=== PATIENT | male | born 1960 | race Caucasian/White ===

== ENCOUNTER → 2017-05-27 14:26 | Outpatient (CLI) | payer MEDICAID, SELFPAY ==
--- NOTE | 2017-05-27 14:51 | CT_ITS ---
STUDY: CT CHEST WITH CONTRAST REASON FOR EXAM: Male, 56 years old. Lung cancer follow up, chemotherapy. Prior surgery for Port. RADIATION DOSAGE (If Supplied By Facility): CTDIvol = ( 14.42 ) mGy, DLP = ( 627.93 ) mGycm TECHNIQUE: Transaxial imaging was performed following intravenous administration of 100mL ml of Isovue 300 contrast material. Individualized dose optimization techniques were used for this CT. COMPARISON: CT Chest Nov 30 2016 1:03pm FINDINGS: There is a left hilar mass measuring 33 x 16 mm. There is no demonstrated pleural abnormality. There is a right Port-A-Cath and/or mediport in place. The tip is in the superior vena cava. Normal heart and pericardium. Normal mediastinum. Normal hilar regions. Normal enhanced pulmonary arteries. Normal aorta arch and descending thoracic aorta. There are multi-level degenerative changes of the thoracic spine. 12 mm left adrenal mass. This is [address]/Chest WITH Contrast IMPRESSION: There is slight decrease in size of left hilar mass. There are no new lesions. Stable left adrenal adenoma. Electronically Signed: Chalino Fernandez MD at 16:16 EST , Service support ,
[2017-05-27 15:18] LABS: Absolute Lymphocyte Count 0.82 X10^3/ul (0.83-4.51); Absolute Neutrophil Count 5.5 X10^3/uL (2.0-7.7); Basophil# 0.01 X10^3/uL; Basophil% 0.1 % (0-1); Eosinophil# 0.19 X10^3/uL; Eosinophils% 2.6 % (0-5); Hemoglobin 14.3 g/dl (13.0-16.5); Lymphocyte # 0.82 X10^3/ul (4.0); Lymphocyte % 11.2 % (19-41); Mean Corpuscular Hgb 30.9 pg (27.0-32.0); Mean Corpuscular Volume 90.7 fL (80-94); Mean Platelet Vol. 8.8 fl (6.2-12.0); Monocyte# 0.78 X10^3/uL; Monocyte% 10.6 % (0-10); Neutrophil # 5.52 X10^3/uL (2.7-7.7); Neutrophil % 75.2 % (47-70); Platelet Count 230 K/mm3 (150-450); RBC Distribution Width CV 14.1 % (11.6-14.6); RBC Distribution Width SD 46.5 fl (35.1-43.9); Red Blood Count 4.63 M/mm3 (4.6-6.2); White Blood Count 7.3 K/mm3 (4.4-11.0)
[2017-05-27 15:22] LABS: POSITIVE COUNT NO; POSITIVE DIFFERENTIAL NO; POSITIVE MORPHOLOGY NO
[2017-05-27 15:33] LABS: ALB/GLOB Ratio 1.1 RATIO (0.9-2.4); AST(SGOT) 16 U/L (15-37); Alanine Aminotransfer ALT/SGPT 25 U/L (16-61); Albumin, Serum 3.6 g/dL (3.2-5.0); Alkaline Phosphatase 88 U/L (45-117); Anion Gap 5 (5-15); BUN 18 mg/dL (7-18); BUN/Creat Ratio 17.5 RATIO (10-20); Calcium,Total 8.6 mg/dL (8.5-10.1); Chloride 105 mmol/L (98-107); Creatinine, Serum 1.03 mg/dL (0.70-1.30); EST Glomerular Filtration Rate 80 mL/min (>60); Est Glom Filt Rate - Afr Amer 97 mL/min (>60); Globulin 3.3 g/dL (2.2-4.2); Glucose 81 mg/dL (74-106); Potassium 3.9 mmol/L (3.5-5.1); Protein, Total 6.9 g/dL (6.4-8.2); Sodium Level 140 mmol/L (136-145)
== END ==
PROVIDERS: Visit Provider Internal Medicine Medical Oncology
DX: C34.92 Malignant neoplasm of unspecified part of left bronchus or lung (principal); D35.02 Benign neoplasm of left adrenal gland
CPT/HCPCS: 36415; 71260; 80053; 85025; Q9967

== ENCOUNTER → 2017-06-01 13:17 | Outpatient (CLI) | payer MEDICAID, SELFPAY ==
[2016-09-16 22:15] VITALS: BP 132/81
[2017-04-04 15:03] VITALS: BP 98/60; BMI 24.7
[2017-06-01 15:35] LABS: Amphetamine Urine VISTA NEGATIVE (<1000 ng/mL); Barbiturate Urine VISTA NEGATIVE (< 200 ng/mL); Benzodiazepine Urine VISTA NEGATIVE (< 200 ng/mL); Cocaine Urine VISTA NEGATIVE (< 300 ng/mL); Ecstacy Urine VISTA POSITIVE (< 500 ng/mL); Methadone Urine VISTA NEGATIVE (< 300 ng/mL); PCP Urine VISTA NEGATIVE (< 25 ng/mL); THC Urine VISTA NEGATIVE (< 50 ng/mL); Vista UDS pH Range 6
== END ==
PROVIDERS: Visit Provider Anesthesiology Pain Medicine
DX: F11.20 Opioid dependence, uncomplicated (principal)
CPT/HCPCS: 80307

== ENCOUNTER → 2017-08-03 14:54 | Outpatient (CLI) | payer MEDICAID, SELFPAY ==
--- NOTE | 2017-08-03 14:56 | CT_ITS ---
STUDY: CT CHEST WITH CONTRAST REASON FOR EXAM: Male, 56 years old. Lung cancer follow-up. Radiation chemotherapy. RADIATION DOSAGE (If Supplied By Facility): CTDIvol = ( 13.42 ) mGy, DLP = ( 564.94 ) mGycm TECHNIQUE: Transaxial imaging was performed following intravenous administration of 100mL ml of Isovue 300 contrast material. Individualized dose optimization techniques were used for this CT. COMPARISON: 07/21/2016, 08/19/2016, 11/30/2016, 05/27/2017. FINDINGS: The wedge-shaped area of abnormal soft tissue density extending anterior from the left hilum is similar in shape and size to the next most recent examination. Greatest dimension on the sagittal images is 5.9 cm length and 2.9 cm greatest width. Abnormal soft tissue thickening surrounding the bronchi to the right upper lobe is grossly stable. Mild volume loss of the right lung is stable. Elevation of the left hemidiaphragm is stable. Left lung is hyperexpanded and adequately clear. No effusions. Normal heart and pericardium. Normal mediastinum. Normal enhanced pulmonary arteries. Normal aorta arch and descending thoracic aorta. Normal osseous structures. There is no demonstrated abnormality of the visualized upper abdomen. CT/Chest WITH Contrast IMPRESSION: No significant change. Stable appearance of a wedge-shaped area of soft tissue density extending anterior and downward from the left hilum. This could represent neoplasm or post therapy fibrosis. This could be differentiated with PET scan. No other changes. Electronically Signed: Loy Allen MD at 22:47 EDT , Service support ,
[2017-08-03 15:16] LABS: EGFR FINGERSTICK > 60.0000 mL/min (>60)
== END ==
PROVIDERS: Visit Provider Internal Medicine Medical Oncology
DX: C34.2 Malignant neoplasm of middle lobe, bronchus or lung (principal)
CPT/HCPCS: 71260; Q9967

== ENCOUNTER → 2017-11-01 15:52 | Outpatient (CLI) | payer MEDICAID, SELFPAY ==
--- NOTE | 2017-11-01 15:54 | CT_ITS ---
STUDY: CT CHEST WITHOUT CONTRAST REASON FOR EXAM: Male, 57 years old. Lung cancer RADIATION DOSAGE (If Supplied By Facility): CTDIvol = ( 11.61 ) mGy, DLP = ( 538.06 ) mGycm TECHNIQUE: Transaxial imaging was performed without the administration of intravenous contrast material. Individualized dose optimization techniques were used for this CT. COMPARISON: 08/03/2017 FINDINGS: Right chest wall port. Stable spiculated density in the left hilum and left upper lobe, measuring approximately 3.0 x 2.1 cm on image 67 of series 4. Stable associated lingular atelectasis more distally. There is no demonstrated pleural abnormality. Normal heart and pericardium. Normal mediastinum. Normal hilar regions. Normal unenhanced pulmonary arteries. Normal aorta arch and descending thoracic aorta. Normal osseous structures. Stable 16 mm left adrenal adenoma. CT/Chest WITH Contrast IMPRESSION: Stable spiculated density in the left hilum and left upper lobe as described. Stable associated lingular atelectasis more distally. No new suspicious pulmonary or mediastinal lesions are seen. Electronically Signed: Jeffery Tavera MD at 23:10 EDT Tel , Service support ,
[2017-11-01 16:05] LABS: EGFR FINGERSTICK > 60.0000 mL/min (>60)
== END ==
PROVIDERS: Visit Provider Internal Medicine Medical Oncology
DX: C34.2 Malignant neoplasm of middle lobe, bronchus or lung (principal)
CPT/HCPCS: 71260; Q9967

== ENCOUNTER → 2018-10-05 15:48 | Outpatient (CLI) | payer MEDICAID, SELFPAY ==
--- NOTE | 2018-10-05 15:50 | CT_ITS ---
STUDY: CT ABDOMEN WITH CONTRAST REASON FOR EXAM: Male, 57 years old. Lung cancer RADIATION DOSAGE (If Supplied By Facility): CTDIvol = ( 20.9 ) mGy, DLP = ( 1327.18 ) mGycm TECHNIQUE: Transaxial images were obtained post I.V. administration of 100 IV Isovue 300, and with oral contrast. Sagittal and coronal images were reconstructed. Individualized dose optimization techniques were used for this CT. COMPARISON: None. FINDINGS: The visualized lung bases are unremarkable. The visualized portions of the heart are within normal limits. Normal liver. Normal gallbladder and extrahepatic biliary system. Normal spleen. Normal pancreas. Normal right adrenal gland. 1 cm adenoma the left adrenal gland. Normal right kidney. Normal left kidney. Normal visualized stomach. Normal small intestine. Normal colon. The appendix is visualized and appears normal. Normal abdominal aorta. Normal inferior vena cava. Normal retroperitoneum. Normal abdominal wall. Normal osseous structures. CT/Abdomen WITH IV Contrast IMPRESSION: Normal enhanced CT of the abdomen. No CT evidence of metastatic bronchogenic carcinoma. Electronically Signed: Julián Warren MD at 9:58 EDT Tel , Service support ,
--- NOTE | 2018-10-05 15:50 | CT_ITS ---
STUDY: CT CHEST WITH CONTRAST REASON FOR EXAM: Male, 57 years old. Follow-up lung cancer RADIATION DOSAGE (If Supplied By Facility): CTDIvol = ( 20.9 ) mGy, DLP = ( 1327.18 ) mGycm TECHNIQUE: Transaxial imaging was performed following intravenous administration of 100 IV Isovue 300. Individualized dose optimization techniques were used for this CT. COMPARISON: 11/01/2017 FINDINGS: Right internal jugular chest port. No change in 2 x 3 cm left hilar mass or lymphadenopathy consistent with treated bronchogenic carcinoma. Also no change in the surrounding pulmonary parenchymal scarring likely from radiation therapy. There is no demonstrated pleural abnormality. Normal heart and pericardium. Normal mediastinum. Normal hilar regions. Normal enhanced pulmonary arteries. Normal aorta arch and descending thoracic aorta. Normal osseous structures. There is no demonstrated abnormality of the visualized upper abdomen. CT/Chest WITH Contrast IMPRESSION: No change in treated left hilar bronchogenic carcinoma. Electronically Signed: Julián Warren MD at 9:56 EDT Tel , Service support ,
[2018-10-05 16:26] LABS: CREATININE FINGERSTICK 1.3 mg/dL (0.70-1.30)
== END ==
PROVIDERS: Referring Provider Internal Medicine Medical Oncology; Visit Provider Internal Medicine Medical Oncology
DX: C34.2 Malignant neoplasm of middle lobe, bronchus or lung (principal)
CPT/HCPCS: 71260; 74160; Q9967

== ENCOUNTER → 2018-11-09 15:27 | Outpatient (CLI) | payer MEDICAID, SELFPAY ==
[2018-10-10 15:13] VITALS: BMI 34.5
--- NOTE | 2018-11-09 15:30 | MRI_ITS ---
HISTORY: Headache, history of lung cancer COMPARISON: MRI brain 02/28/2017 and 04/07/2016 TECHNIQUE: Multiphasic multiplanar MR imaging of the brain per department protocol without and with 20 ml of Dotarem intravenous gadolinium. # of images including paperwork: [phone] FINDINGS: BRAIN: Diffusion-weighted imaging shows no acute infarct. No remote parenchymal infarct. No parenchymal hemorrhage, intra-axial mass, mass effect, or midline shift. No abnormal extra-axial fluid collections. VENTRICLES: Ventricles are normal in size and configuration. No hydrocephalus. POST CONTRAST: No abnormal enhancing parenchymal or dural based lesions. OTHER: Paranasal sinuses are clear. Mastoid air cells are clear. Orbits are unremarkable. MRI/Brain W/WO Contrast IMPRESSION: 1. Negative pre-and postcontrast MR examination of the brain. 2. No evidence for malignancy. 3. No significant interval change. at 1733 Reported and signed by: Romero Kincaid MD Electronically Signed: Romero Kincaid MD at 17:32 EDT Tel , Service support ,
[2018-11-09 17:16] LABS: Hemoglobin 14.6 g/dL (13.0-16.5); Mean Corp Hgb Conc 33.2 g/dL (32-36); Mean Corpuscular Hgb 30.7 pg (27.0-32.0); Mean Corpuscular Volume 92.4 fL (80-94); Mean Platelet Vol. 8.5 fl (6.2-12.0); Platelet Count 320 K/mm3 (150-450); RBC Distribution Width CV 13.5 % (11.6-14.6); RBC Distribution Width SD 46.2 fl (35.1-43.9); Red Blood Count 4.76 M/mm3 (4.6-6.2); White Blood Count 6.2 K/mm3 (4.4-11.0)
[2018-11-09 17:40] LABS: Valproic Acid (Depakene) Level 31 ug/mL (50-100)
[2018-11-09 17:43] LABS: Vitamin B12 392 pg/mL (211-911)
[2018-11-09 18:18] LABS: ALB/GLOB Ratio 0.9 RATIO (0.9-2.4); AST(SGOT) 13 U/L (15-37); Alanine Aminotransfer ALT/SGPT 36 U/L (16-61); Albumin, Serum 3.4 g/dL (3.2-5.0); Alkaline Phosphatase 135 U/L (45-117); Anion Gap 7 (5-15); BUN 14 mg/dL (7-18); Calcium,Total 8.3 mg/dL (8.5-10.1); Chloride 106 mmol/L (98-107); Creatinine, Serum 1.08 mg/dL (0.70-1.30); EST Glomerular Filtration Rate 75 mL/min (>60); Est Glom Filt Rate - Afr Amer 91 mL/min (>60); Globulin 3.6 g/dL (2.2-4.2); Glucose 88 mg/dL (74-106); Potassium 4.1 mmol/L (3.5-5.1); Sodium Level 140 mmol/L (136-145); Thyroid Stim Hormone (TSH) 1.24 uIU/mL (0.358-3.74)
== END ==
PROVIDERS: Referring Provider Psychiatry & Neurology Neurology; Visit Provider Psychiatry & Neurology Neurology
DX: R51 Headache (principal); M79.7 Fibromyalgia
CPT/HCPCS: 36415; 70553; 80053; 80164; 82140; 82607; 82746; 84443; 85027; A9575

== ENCOUNTER 2018-12-22 18:07 | Emergency (ER) | payer MEDICAID, SELFPAY ==
[2018-10-10 15:13] VITALS: BMI 34.5
[2018-12-22 18:08] VITALS: BP 141/80; PULSE 119; RESP 16; TEMP 36.6; O2SAT 95; BMI 30.5
[2018-12-22 18:27] VITALS: BP 123/81; PULSE 118; RESP 16; TEMP 37; O2SAT 94
[2018-12-22 18:32] VITALS: O2SAT 94
--- NOTE | 2018-12-22 18:39 | EKG12_ITS ---
Test Reason : DYSRHYTHMIA Blood Pressure : / mmHG Vent. Rate : 109 BPM Atrial Rate : 109 BPM P-R Int : 166 ms QRS Dur : 118 ms QT Int : 336 ms P-R-T Axes : 043 -55 057 degrees QTc Int : 452 ms Sinus tachycardia Right bundle branch block Left anterior fascicular block Abnormal ECG Confirmed by AFSHIN COX, ULYSSES ([id number]), publication editor MUNIRA WOLF ([id number]) on 12/26/2018 11:19:32 AM Referred By: BB Confirmed By:LUYSSES PEPE MD
--- NOTE | 2018-12-22 18:40 | ED.DCSUM_ITS ---
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 He denies any dyspnea. He states last time he felt like this it was pneumonia. Denies any leg pain or swelling. No history of DVT or PE. No recent travel, hospitalization, surgery, or other immobilization. Subjective fevers and sweats at home. He states he does not have a thermometer. No history of COPD but he did have lung cancer that was treated nonsurgically with chemotherapy successfully, it is not active. - Past Medical History (1) Fibromyalgia Status: Chronic (2) Chronic pain Status: Chronic (3) Anxiety and depression Status: Chronic (4) GERD (gastroesophageal reflux disease) Status: Chronic (5) ICH (intracerebral hemorrhage) Status: Resolved (6) Non-small cell carcinoma of left lung Status: Resolved (7) Tremor Status: Chronic (8) COPD (chronic obstructive pulmonary disease) Status: Suspected Past Medical History - Allergies and Home Meds Allergies/Adverse Reactions: Allergies No Known Allergies Allergy (Verified 10/10/18 15:12) Primary Care Physician: Care Physician,No Primary [Primary Care Provider] - Surgical History: - - L ankle hardward/surgery. Lives: Alone Smoking Status: Current every day smoker - Family History Maternal Family History: Family History (Last Reviewed 10/10/18 @ 15:11 by Zarina Prakash) Father Prostate cancer Skin cancer Mother Breast cancer Lung cancer Family History: Reports: Cancer - Mother w/ metastatic Breast/?Lung CA. Paternal Family History: Family History (Last Reviewed 10/10/18 @ 15:11 by Zarina Prakash) Father Prostate cancer Skin cancer Mother Breast cancer Lung cancer Family History: Reports: Cancer - Father w/ Prostate CA. Review of Systems General: Reports: Fever, Malaise, Sweats. Denies: Chills Eyes: Denies: Visual changes - bilaterally, Diplopia ENT: Denies: Bilateral ear pain, Rhinorrhea, Sore throat Cardiovascular: Reports: Chest pain. Denies: Palpitations Respiratory: Reports: Cough. Denies: Dyspnea, Sputum, Dyspnea on exertion, Orthopnea Gastrointestinal: Denies: Abdominal pain, Nausea, Vomiting, Diarrhea, Melena, Hematochezia Genitourinary: Denies: Dysuria, Hematuria, Frequency Musculoskeletal: Reports: Extremity Pain - chronically intermittent. Denies: Back pain, Swelling Skin: Denies: Rash, Wounds Neurological: Denies: Headache, Weakness, Numbness Physical Exam Vital Signs/Narrative: Vital Signs Temp Pulse Resp BP Pulse Ox 12/22/18 18:27 98.6 F 118 H 16 123/81 H 94 12/22/18 18:08 97.8 F 119 H 16 141/80 H 95 Inital Vital Signs reviewed: Yes General: Well nourished, Well developed, No Acute Distress - conversing in full sentences Head: Normocephalic, Atraumatic Eyes: Perrl, EOMI ENT: Moist mucous membranes, No rhinorrhea, TM's clear - except for bulging of R TM, no erythema or perf. Negative for: Nasal congestion, Sinus tenderness Neck: Supple, Nontender, No lymphadenopathy, No JVD Cardiovascular: Regular rate, Regular rhythm, No murmurs, Normal S1, Normal S2, Tachycardia Respiratory: No distress, CTA bilaterally, Chest nontender Abdomen: Soft, Nontender, Nondistended, Normal bowel sounds Back: Nontender, Normal Inspection. Negative for: CVA tenderness Extremities: Nontender, No edema. Negative for: Calf Tenderness Skin: Normal color, No rash, No Trauma Neurological: Alert, Oriented x3, Cranial nerves II-XII grossly intact, Normal Strength, Normal Sensation, Normal Gait Psychological: Normal affect, Normal Mood Diagnostic/Tx/Re-eval Impressions Chest X-Ray 12/22/18 19:10 IMPRESSION: No acute thoracic pathology. Electronically Signed: Matthew Carmichael, at 19:26 EDT Tel , Service support , 12/22/18 19:10 Chest PA and Lateral [RAD] Stat Laboratory Results 12/22/18 12/22/18 12/22/18 19:00 19:00 19:00 WBC 8.6 RBC 5.04 Hgb 15.4 Hct 46.0 MCV 91.3 MCH 30.6 MCHC 33.5 RDW Std Deviation 44.3 H RDW Coeff of Hugh 13.3 Plt Count 294 MPV 8.6 Immature Gran % (Auto) 0.500 Neut % (Auto) 73.1 H Lymph % (Auto) 10.[address] [facility] % (Auto) 13.8 H Eos % (Auto) 2.0 Baso % (Auto) 0.4 Absolute Neuts (auto) 6.3 Absolute Lymphs (auto) 0.87 Nucleated RBC % 0 D-Dimer Quant (PE/DVT) 0.30 Sodium 140 Potassium 3.6 Chloride 106 Carbon Dioxide 28.0 Anion Gap 6 BUN 21 H Creatinine 1.07 Estim Creat Clear Calc 84.61 Est GFR (MDRD) Af Amer 92 Est GFR (MDRD) Non-Af 76 BUN/Creatinine Ratio 19.6 Glucose 116 H Calcium 9.5 Troponin I < 0.015 - Rhythm Strip Rhythm Strip: Sinus Tach Rate: 110 Ectopy: None - EKG Initial EKG Interpretation: Sinus Rhythm, No Acute Injury Pattern - computer calling acute CA/STEMI, however I disagree; no acute injury, RBBB, LAFB Prior: Changed - Left axis is old, right bundle branch block is new compared to old EKG 2016 - Medical Decision Making Patient has a resting tachycardia with pleuritic chest discomfort, but he meets Wells criteria in order to perform dimer testing which was well within normal limits, ruling out acute PE as cause for this. Of note, his chest was nontender. His chest x-ray shows no acute infiltrates, and his work-up was otherwise unremarkable with an EKG that shows a new right bundle branch block but it is compared with an EKG from about 3 years ago. His cardiac enzymes are negative. He has had no dyspnea. I think it would be reasonable to cover him empirically with antibiotics to cover atypicals given his resting tachycardia, he declined albuterol since he has no dyspnea, and I think he is stable for discharge home. He is comfortable with this plan and encouraged to return for worsening symptoms. ED Disposition - Plan for ED Patient: Disposition: Home or Assisted Living Diagnosis: Pleuritic chest pain, Lower respiratory infection Instructions: BRONCHITIS, Antiobiotic Treatment (Adult) Prescriptions: Azithromycin 250 mg PO QHS #6 tab Prescription Printed Referrals: Doctor,Your [STAFF PHYSICIAN] - 3-5 Days if not improving (or return to ER if getting worse)
[2018-12-22] MEDS: Ketorolac 15 MG/ML Vial IV (19:06)
[2018-12-22 19:10] LABS: Absolute Lymphocyte Count 0.87 X10^3/uL (0.83-4.51); Absolute Neutrophil Count 6.3 X10^3/uL (2.0-7.7); Basophil# 0.03 X10^3/uL; Basophil% 0.4 % (0-1); Eosinophil# 0.17 X10^3/uL; Hemoglobin 15.4 g/dL (13.0-16.5); Lymphocyte # 0.87 X10^3/ul (4.0); Lymphocyte % 10.2 % (19-41); Mean Corp Hgb Conc 33.5 g/dL (32-36); Mean Corpuscular Hgb 30.6 pg (27.0-32.0); Mean Corpuscular Volume 91.3 fL (80-94); Mean Platelet Vol. 8.6 fl (6.2-12.0); Monocyte# 1.18 X10^3/uL; Monocyte% 13.8 % (0-10); NRBC Flagged by Analyzer 0 % (0-5); Neutrophil # 6.27 X10^3/uL (2.7-7.7); Neutrophil % 73.1 % (47-70); Platelet Count 294 K/mm3 (150-450); RBC Distribution Width CV 13.3 % (11.6-14.6); RBC Distribution Width SD 44.3 fl (35.1-43.9); Red Blood Count 5.04 M/mm3 (4.6-6.2); White Blood Count 8.6 K/mm3 (4.4-11.0)
--- NOTE | 2018-12-22 19:10 | RAD_ITS ---
STUDY: X-RAY CHEST REASON FOR EXAM: Male, 58 years old. Cough TECHNIQUE: PA and lateral views of the chest COMPARISON: X-Ray Chest February 29, 2016 FINDINGS: Right chest tunneled catheter is present with the tip at the cavoatrial injection. The lungs are clear. Left lung base scarring is present. There are no pleural effusions. There is no pneumothorax. The heart is normal in size. The visualized osseous structures are within normal limits. RAD/Chest PA and Lateral IMPRESSION: No acute thoracic pathology. Electronically Signed: Matthew Carmichael, at 19:26 EDT Tel , Service support ,
[2018-12-22 19:27] LABS: Anion Gap 6 (5-15); BUN 21 mg/dL (7-18); BUN/Creat Ratio 19.6 RATIO (10-20); Calcium,Total 9.5 mg/dL (8.5-10.1); Chloride 106 mmol/L (98-107); Creatinine, Serum 1.07 mg/dL (0.70-1.30); EST Glomerular Filtration Rate 76 mL/min (>60); Est Glom Filt Rate - Afr Amer 92 mL/min (>60); Estimated Creatinine Clearance 84.61 ml/min; Glucose 116 mg/dL (74-106); Potassium 3.6 mmol/L (3.5-5.1); Sodium Level 140 mmol/L (136-145)
[2018-12-22 20:05] VITALS: BP 121/77; PULSE 101; RESP 18; TEMP 37; O2SAT 5; O2SAT 95
--- NOTE | 2018-12-22 20:08 | ED.RN ---
RN GAVE PT PHYSICIAN DIRECTOR PAMPHLET PER DR. DUMONT FOR PATIENT TO FOLLOW UP.
== END 2018-12-22 20:07 | disposition home or self-care (01) ==
PROVIDERS: Emergency Provider Emergency Medicine
DX: J22 Unspecified acute lower respiratory infection (principal); R09.1 Pleurisy; I45.10 Unspecified right bundle-branch block; M79.7 Fibromyalgia; G89.29 Other chronic pain; K21.9 Gastro-esophageal reflux disease without esophagitis; R25.1 Tremor, unspecified; Z85.118 Personal history of other malignant neoplasm of bronchus and lung; Z87.01 Personal history of pneumonia (recurrent); Z79.899 Other long term (current) drug therapy; F17.200 Nicotine dependence, unspecified, uncomplicated
CPT/HCPCS: 71046; 80048; 84484; 85025; 85379; 93005; 96374; 99284; A4216

== ENCOUNTER → 2019-06-11 15:43 | Outpatient (CLI) | payer MEDICAID, SELFPAY ==
[2019-06-05 14:09] VITALS: BMI 33.7
--- NOTE | 2019-06-11 15:44 | CT_ITS ---
STUDY: CT ABDOMEN AND PELVIS WITH CONTRAST REASON FOR EXAM: Male, 58 years old. Question recurrent non-small cell carcinoma of the left lung. RADIATION DOSAGE (If Supplied By Facility): CTDIvol = ( 24.78 ) mGy, DLP = ( 1360.25 ) mGycm TECHNIQUE: Transaxial images were obtained from the dome of the diaphragm to the symphysis pubis without oral contrast. IV 100mL Isovue-300 was administered. Sagittal and coronal images were reconstructed. Individualized dose optimization techniques were used for this CT. COMPARISON: CT of the chest, June 11, 2019. CT of the abdomen, October 22, 2018. FINDINGS: The visualized lung bases are unremarkable. The visualized portions of the heart are within normal limits. There is a stable hypodensity in segment 2 of the liver unchanged from previous examinations. The liver is otherwise unremarkable. Normal gallbladder and extrahepatic biliary system. Normal spleen. Normal pancreas. Normal right adrenal gland. There is a 1.2 cm adenoma in the left adrenal gland unchanged from the prior study. Normal right kidney. Normal left kidney. Normal ureters. Normal visualized stomach. There are nondistended thick-walled loops of proximal jejunum without evidence of obstruction. The distal small bowel appears grossly normal. Normal colon. The appendix is visualized and appears normal. Normal abdominal aorta. Normal inferior vena cava. Normal retroperitoneum. Normal urinary bladder. Normal prostate. There are phleboliths in pelvis without lymphadenopathy. No free air or free fluid is seen within the peritoneal cavity. Umbilical hernia of omental fat. The abdominal wall is otherwise on the proximal. There are diffuse degenerative changes of the visualized lumbar spine. CT/Abdomen WITH IV Contrast IMPRESSION: 1. No evidence of metastatic disease. 2. Stable hepatic cysts. 3. Stable left adrenal adenoma. 4. Mild wall thickening and nondistention of the proximal jejunum. Peristalsis versus mild enteritis. 5. No other major interval change. Electronically Signed: Wood Monsivais DO at 16:30 EST Tel [phone], Service support ,
--- NOTE | 2019-06-11 15:44 | CT_ITS ---
STUDY: CT CHEST WITH CONTRAST REASON FOR EXAM: Male, 58 years old. Question recurrence of non-small cell cancer of the left lung. RADIATION DOSAGE (If Supplied By Facility): CTDIvol = ( 18.01 ) mGy, DLP = ( 818.83 ) mGycm TECHNIQUE: Transaxial imaging was performed following intravenous administration of IV 100mL Isovue-300. Multiplanar coronal and sagittal images were reformatted. Individualized dose optimization techniques were used for this CT. COMPARISON: CT of the chest, October 05, 2018. FINDINGS: The lungs are well expanded. Again seen is mild volume loss in the medial lingula are unchanged from the prior study. There is no demonstrated pleural abnormality. Normal heart and pericardium. Normal mediastinum. Normal right hilum. Again seen is soft tissue density in the right hilum which appears unchanged in size and appearance from the previous examination. Normal enhanced pulmonary arteries. Again noted is minimal atherosclerotic changes of the aortic arch without aneurysm or dissection. There are no osseous changes. Stable low-attenuation focus in segment 2 of the liver. The upper abdomen is otherwise unremarkable. There is no demonstrated abnormality of the visualized upper abdomen. CT/Chest WITH Contrast IMPRESSION: No change in findings when compared to October 05, 2018. Electronically Signed: Wood Monsivais DO at 16:25 EST Tel [phone], Service support ,
== END ==
PROVIDERS: Referring Provider Internal Medicine Hematology & Oncology; Visit Provider Internal Medicine Hematology & Oncology
DX: C34.92 Malignant neoplasm of unspecified part of left bronchus or lung (principal); C77.9 Secondary and unspecified malignant neoplasm of lymph node, unspecified
CPT/HCPCS: 71260; 74160; Q9967

== ENCOUNTER 2019-07-12 10:03 | Inpatient (IN) | payer MEDICAID, SELFPAY ==
[2019-06-13 14:34] VITALS: BMI 33.4
[2019-07-06 13:19] VITALS: BP 120/79; PULSE 81; RESP 16; TEMP 36.9; O2SAT 95; BMI 32.3
--- NOTE | 2019-07-06 13:38 | RAD_ITS ---
STUDY: X-RAY CHEST REASON FOR EXAM: Male, 58 years old. PRE SURGERY- TRACHEOSTOMY TECHNIQUE: PA and lateral views of the chest. COMPARISON: December 22, 2018 FINDINGS: There is a port on the right extending to the superior vena cava. There is left mid lung consolidation and/or mass. There is no demonstrated pleural abnormality. Normal size heart. Normal mediastinum and oliverio. Normal visualized pulmonary arteries. Normal visualized aortic arch and descending thoracic aorta. Normal visualized thoracic spine. Normal visualized ribs, clavicles, and shoulders. There is no demonstrated abnormality of the visualized soft tissue structures of the upper abdomen. RAD/Chest PA and Lateral IMPRESSION: Left midlung consolidation and/or mass. Electronically Signed: Brad Zheng MD at 14:12 EDT , Service support ,
--- NOTE | 2019-07-06 13:38 | SDCEKG_ITS ---
Test Reason : Blood Pressure : / mmHG Vent. Rate : 074 BPM Atrial Rate : 074 BPM P-R Int : 174 ms QRS Dur : 124 ms QT Int : 392 ms P-R-T Axes : 001 -21 045 degrees QTc Int : 435 ms Normal sinus rhythm Right bundle branch block Abnormal ECG Confirmed by RADHA COX, CANELO ([id number]), associate entertainment editor MUNIRA WOLF ([id number]) on 07/10/2019 7:45:06 AM Referred By: Yamil Ibarra Confirmed By:CANELO GARCIA MD
[2019-07-06 14:02] LABS: Hematocrit 45.5 % (40-54); Hemoglobin 15.2 g/dL (13.0-16.5); Mean Corp Hgb Conc 33.4 g/dL (32-36); Mean Corpuscular Hgb 29.6 pg (27.0-32.0); Mean Corpuscular Volume 88.7 fL (80-94); Mean Platelet Vol. 8.6 fl (6.2-12.0); Platelet Count 245 K/mm3 (150-450); RBC Distribution Width SD 42.6 fl (35.1-43.9); Red Blood Count 5.13 M/mm3 (4.6-6.2); White Blood Count 5.5 K/mm3 (4.4-11.0)
[2019-07-06 14:17] LABS: Anion Gap 4 (5-15); BUN 22 mg/dL (7-18); BUN/Creat Ratio 19.8 RATIO (10-20); Calcium,Total 8.8 mg/dL (8.5-10.1); Chloride 113 mmol/L (98-107); Creatinine, Serum 1.11 mg/dL (0.70-1.30); EST Glomerular Filtration Rate 73 mL/min (>60); Est Glom Filt Rate - Afr Amer 88 mL/min (>60); Estimated Creatinine Clearance 81.56 ml/min; Glucose 101 mg/dL (74-106); Potassium 4.1 mmol/L (3.5-5.1); Sodium Level 144 mmol/L (136-145)
[2019-07-12] VITALS (20 sets, daily range): BP systolic 114–160; BP diastolic 73–95; PULSE 77–113; RESP 10–19; TEMP 36.4–37.5; O2SAT 94–100; BMI 32.5; BMI 32.0
--- NOTE | 2019-07-12 | IMM_PTH ---
PATIENT: EDMUNDO RUIZ LOC: [facility] U#:[id number] AGE/SX: 58/M ROOM: ICU07 RE07/12/[address]: Dr. Graham Ibarra MD : 1960 BED: 1 DIS: 07/13/2019 SPEC #: [id number] RECD: 07/13/19 10:54 STATUS: BILL REQ #: [id number] TAMIA: 07/12/19 00:[address]: Graham Ibarra DEPT: IMMUNOHISTOCHEMISTRY RECD BY: Tania Braga ENTERED: 07/13/19 10:55 SP TYPE: IMMUNO OTHR DR: MD Dr. Karen Veliz MD No Primary Care Phys Tissues: Larynx, NOS Procedures: CK20 (add) CK5-6 (add) CK7 (add) CK8 (add) P16 (add) Pankeratin (initial) P40 (add) PHYSICIAN [facility] INSTIT[facility] [address] [address] SPECIMEN INFORMATION: Tissue Source: Right laryngeal mass Clinical Info: Dysphonia, malignant neoplasm of glottis Specimen Number: [id number] CPT code: 51554, 28170 x6 METHODOLOGY: Deparaffinized sections of prefer/formalin-fixed tissue or PAP/DQ stained slides are incubated with monoclonal/polyclonal antibodies/oligonucleotide probes. Localization is made via biotin free immunoperoxidase method. Appropriate controls are performed and reacted as expected. Results on target cell population are indicated in the following table: RESULTS: ANTIBODY / CLONE RESULT AE1-3 (AE1/AE3/PCK26) positive CK8 (22iqubT28) negative CK7 (OV-TL12/30) negative CK20 (KS20.8) negative P16 (E6H4) negative CK5-6 (D5 & 1684) positive P40 (BC28) positive These tests were developed and their performance characteristics determined by [facility]. They may not have been cleared or approved by the U.S. Food and Drug Administration. The FDA has determined that such clearance or approval is not necessary. The above immunohistochemical/dualISH markers are ordered and reviewed by the Pathologist. 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 SJ:jamarcus 07/13/19
[2019-07-12] MEDS: Lactated Ringers 1,000 ML 100 ML IV (07:00)
--- NOTE | 2019-07-12 07:30 | MASS_PTH ---
PATIENT: EDMUNDO RUIZ LOC: [facility] U#:[id number] AGE/SX: 58/M ROOM: ICU07 RE07/12/[address]: Dr. Graham Ibarra MD : 1960 BED: 1 DIS: 07/13/2019 SPEC #: [id number] RECD: 07/12/19 10:34 STATUS: BILL REKayleen #: [id number] TAMIA: 07/12/19 07:[address]: Graham Ibarra DEPT: SURGICAL PATHOLOGY RECD BY: Deborah Bone ENTERED: 07/12/19 11:17 SP TYPE: Mass OTHR DR: MD Dr. 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 See comment. NAKIA:jamarcus 07/13/19 COMMENT Immunohistochemistry ([id number]) supports the above diagnosis. The tumor is negative for surrogate HPV marker (p16). Please make reference to previous specimen ([id number]) TOMA, endobronchial lesion, endobronchial biopsy and LLL, endobronchial biopsy with diagnosis of non-small cell carcinoma, favor adenocarcinoma. Case has been reviewed in consultation with Dr. Weiss who concurs with the above diagnosis. IDC:AM MICROSCOPIC DESCRIPTION Slides are reviewed. GROSS DESCRIPTION Received in fixative is one container labeled with the patient's name and designated right laryngeal mass. The specimen consists of multiple pieces of denson soft tissue mixed with hemorrhagic tissue that in aggregate measure 1 x 1 x 0.3 cm. The specimen is totally submitted in one cassette. / NAKIA:jamarcus 07/12/19 TC:0 CPT: 46345 ADDENDUM ADDENDUM ADDENDUM ADDENDUM ADDENDUM ADDENDUM 02/27/2021 10:18 ADDENDUM 02/27/2021 10:18 ADDENDUM 02/27/2021 10:18 ADDENDUM 02/27/2021 10:18 ADDENDUM 02/27/2021 10:18 PD-L1 (KEYTRUDA) SQUAMOUS CELL CARCINOMA OF ESOPHAGUS FROM Apartment List RESULTS: Combined Positive Score: 3 (CPS<10 / No PD-L1 Expression) Please see complete report in e-chart or EMR
[2019-07-12] MEDS: Lubricating Jelly 60 GM Tube 30 GM TOPICAL (08:14)
[2019-07-12] MEDS: Oxymetazoline 0.05% 1 SPRAY SPRAY.BTL 15 SPRAY (08:39)
--- NOTE | 2019-07-12 08:53 | PCM.OPRPT ---
Problem List (1) Laryngeal cancer Status: Chronic (2) Respiratory failure Status: Chronic Report of Operation Date of Procedure: 07/12/19 Pre-Operative Diagnosis: 1. laryngeal mass. 2. respiratory failure Post-Operative Diagnosis: 1. laryngeal mass. 2. respiratory failure Surgery/Procedure Performed:: 1. tracheostomy with marko flap. 2. direct laryngoscopy with use of operative telescope Type of Anesthesia:: General Description of Procedure: on the day of the procedure, after appropriate informed consent was obtained, the patient was brought to the operating room and placed in supine position on the operating table. he was placed under general endotracheal anesthesia using the glide scope by the anesthesiologist. the endotracheal tube was secured, the eyes were taped. the neck was injected with lidocaine/epinephrine and prepped and draped in sterile fashion. a 2cm transverse incision was made with a 15 blade in the lower neck. a lipectomy was performed with a bovie and allis. the right anterior jugular vein was ligated and transected. the infrahyoid strap muscles were divided along the midline raphe. the pretracheal fascia was incised with the bovie and the inferior thyroid gland was divided with the bovie. a vein hook was used to elevate the thyroid. the airway was exposed with army/navy retractors. an incision was made between the 1st and 2nd rings with a 15 and a marko flap was created. this was sutured to the skin with 2-0 ticron. the airway was suctioned and a 8 DCT was placed. the cuff was inflated and position confirmed with end tidal CO2. it was sutured into place with silk sutures. an umbilical tie was used. the table was rotated 90 degrees toward the surgeon. a anastacia laryngoscope was used to obtain a laryngeal view. a zero degree telescope was inserted. the supraglottis was mainly spared from tumor. however the remainder of right glottis and subglottis as well as left glottis was involved. the cords were mobile bilaterally in the office. the anterior commissure was involved. it likely extends to the right subglottis. additional muscle paralysis was given by anesthesia and the view of his glottis was still suboptimal. right sided cuffed biting forceps were used to take multiple biopsies. hemostasis was achieved. the patient was awoken from anesthesia and transferred to the PACU in stable condition.
--- NOTE | 2019-07-12 10:05 | CASEMGMT ---
EMILY ASHBY Note. Pt to ICU, S/P new tracheostomy. Pt will need tracheostomy supplies and Home care on discharge. Pt is sleepy and unable to participate in assessment at this time. Pt has caresource: [facility] and [facility] are in network with [facility]. EMILY ASHBY called to office to see if any prior planning for supplies/HHC was made by office. None per their staff. -Call to [facility], spoke with Jasmine to review script and pt's supply needs. Script faxed to Dr. Marques's office to sign. -Call to [facility], referral faxed. Abiola MONET RN ACM
[2019-07-12] MEDS: HYDROmorphone 1 MG/ML Syringe IV (10:42)
--- NOTE | 2019-07-12 12:19 | CON.PCM_ITS ---
Problem List (1) Anxiety and depression Status: Chronic (2) ICH (intracerebral hemorrhage) Status: Chronic Qualifiers: Intracerebral hemorrhage etiology: traumatic Laterality: unspecified laterality Loss of consciousness presence/duration: with LOC of unspecified duration (3) GERD (gastroesophageal reflux disease) Status: Chronic Qualifiers: Esophagitis presence: esophagitis presence not specified Qualified Code(s): K21.9 - Gastro-esophageal reflux disease without esophagitis (4) COPD (chronic obstructive pulmonary disease) Status: Chronic Qualifiers: Emphysema type: unspecified (5) Non-small cell carcinoma of left lung Status: Chronic (6) Laryngeal cancer Status: Chronic Reason for Consult Date of Consultation: 07/12/19 Reason for Consultation: Postoperative medical management. History of Present Illness: The patient is a 58 year old M with past medical history as mentioned above who underwent placement of tracheostomy for laryngeal mass causing acute respiratory failure and I am seeing this patient in consultation for postoperative medical management. At this time, patient complained of neck pain which he is getting IV Dilaudid shortly. He denies any chest pain or shortness of breath. Denied abdominal pain, nausea or vomiting. He had a history of non-small cell lung cancer status post chemotherapy and radiation back on Aug, 2016 and he was found to have residual PET scan abnormalities for which he was evaluated for p neumonectomy on January, but patient declined surgery. He had a history of traumatic intracerebral hemorrhage due to fall. He had a history of anxiety and depression but currently he is not on any medications. Recently, was diagnosed with laryngeal cancer that is why he went for tracheostomy today. At this time, his vital signs are stable. He is being evaluated by speech therapy at this time. His preoperative routine blood work that was done on July 06, 2019 was unremarkable. Preoperative EKG that was done on the same date reviewed and was unremarkable as well. Past Medical History Past Medical History (Chronic Problems): Chronic Problems (Last Updated 07/12/19 @ 12:[address] Karen Barnhart MD) Anxiety and depression (Chronic) Tremor (Chronic) ICH (intracerebral hemorrhage) (Chronic) GERD (gastroesophageal reflux disease) (Chronic) Tobacco use (Chronic) COPD (chronic obstructive pulmonary disease) (Chronic) Obesity (BMI 30.0-34.9) (Chronic) Non-small cell carcinoma of left lung (Chronic) Fibromyalgia (Chronic) Regional lymph node metastasis present (Chronic) Laryngeal cancer (Chronic) Respiratory failure (Chronic) Medical History: Medical History (Last Updated 07/12/19 @ 12:[address] Karen Barnhart MD) Depression F32.9 Left ankle surgery Med port placement Allergies No Known Allergies Allergy (Verified 07/06/19 13:17) Home Medications: Ambulatory Orders Medication Instructions Recorded Baclofen 30 mg PO TID 02/29/16 Pregabalin [Lyrica] 300 mg PO BID 08/04/16 Surgical History: Surgical History (Last Reviewed 06/13/19 @ 14:33 by Zarina Prakash) H/O arthroscopy of left knee Z98.890 Surgical History: - - L ankle hardward/surgery. Psychiatric History: Anxiety, Depression Smoking Status: Former smoker Alcohol: None Drugs: None - *Family History Maternal Family History: Family History (Last Reviewed 07/12/19 @ 12:[address] Karen Barnhart MD) Father Prostate cancer Skin cancer Mother Breast cancer Lung cancer History Items: Cancer Paternal Family History: Family History (Last Reviewed 07/12/19 @ 12:[address] Karen Barnhart MD) Father Prostate cancer Skin cancer Mother Breast cancer Lung cancer History Items: Cancer Review of Systems Constitutional: Denies: Anorexia, Chills, Fever, Weakness Eyes: Denies: Blurred vision, Double vision, Drainage, Redness HEENT: Reports: Head Aches. Denies: Difficulty Hearing, Ear Pain, Eye Pain, Nasal Congestion, Sore Throat Cardiovascular: Denies: Chest Pain, Chest Pressure, Chest Tightness, Heaviness, Palpitations, Syncope Respiratory: Denies: Cough, Hemoptysis, Pleuritic Pain, Shortness of Breath, Sputum production, Wheezing Gastrointestinal: Denies: Abdominal Pain, Constipation, Diarrhea, Nausea, Vomiting Genitourinary: Denies: Dysuria, Frequency, Hematuria Musculoskeletal: Reports: Neck Pain. Denies: Arm Pain, Back Pain, Foot Pain Skin: Denies: Dryness, Rash Neurological: Denies: Balance problems, Double vision, Change in Speech, Slurred speech, Headaches, Incoordination, Numbness Psychiatric: Reports: Anxiety, Depression Endocrine: Denies: Change in Body Habitus, Polydipsia, Polyuria - Physical Exam Vitals/I&O's: Vital Signs Temp Pulse Resp BP Pulse Ox 98.9 F 95 18 138/88 H 98 07/12/19 06:20 07/12/19 06:20 07/12/19 06:20 07/12/19 06:20 07/12/19 09:45 Oxygen Flow Rate (L/min) 3 Oxygen Delivery Method Nasal Cannula Weight: 239 lb 13.807 oz Body Mass Index (BMI) 32.5 General: Alert, Oriented x3, Cooperative, - - Mild distress because of pain. HEENT: Atraumatic, PERRLA, EOMI, Normocephalic Oral: Moist Mucosa, No Gingival or Mucosal Lesions/ Ulcerations Neck: Supple, No JVD, Negative Carotid Bruits, Trachea Midline, Thyroid Normal Size and Texture, - - Tracheostomy in place. Lungs: Clear to auscultation, Normal air movement, No rhonchi, No wheeze, No rales, Diminished Cardiovascular: Regular rate, Regular Rhythm, Normal S1, Normal S2, PMI Normal Abdomen: Bowel Sounds Present, Soft, Non Tender, Non-Distended, No Hepato- splenomegaly Extremities: No clubbing, No cyanosis, No edema Skin: No rashes, No breakdown Lymphatic: No Cervical, Supraclavicular, or Inguinal Adenopathy Neurological: Cranial nerves II-XII grossly intact, Motor Exam 5/5 strength throughout Psych/Mental Status: Normal Affect, Appropriate, Alert and oriented to time, place, person, mood and affect Current Medications Acetaminophen (Tylenol) 650 mg PO Q6H PRN PRN PRN Reason: Pain Score 1-10/10 Hydromorphone HCl (Dilaudid Inj) 1 mg IV Q4H PRN PRN PRN Reason: Pain Score 6-10/10 Sodium Chloride () 1,000 mls @ 75 mls/hr IV .[id number] NELSON Ondansetron HCl (Zofran) 4 mg IV Q6H PRN PRN PRN Reason: NAUSEA/VOMITING Oxycodone HCl (Oxyir) 5 mg PO Q6H PRN PRN PRN Reason: Pain Score 6-10/10 Sodium Chloride () 10 - 40 ml IV UD PRN PRN Reason: SALINE FLUSH Assessment/Plan This is a 58 years old male patient underwent placement of tracheostomy for recent diagnosed laryngeal cancer causing upper obstruction and I am seeing this patient in consultation for postoperative medical management. #1 status post tracheostomy: This was done for upper obstruction due to pharyngeal mass. Postoperative day 0. At this time, vital signs are stable. Preoperative routine blood work and EKG reviewed, was unremarkable. He is being evaluated by speech therapy at this time. Plan: IV Dilaudid every 4 hours PRN, OxyIR PRN, IV fluids, Zofran PRN, Tylenol PRN, repeat CBC and BMP tomorrow morning. #2 recent diagnosis of laryngeal cancer: Not receiving any treatment so far. Patient will need to be seen by oncology probably as outpatient. #3 history of non-small cell lung cancer: Status post chemotherapy and radiation back on February,. Due to residual PET scan abnormalities, he was evaluated for pneumonectomy on January 2017 but patient declined. At this time, he is stable, in remission. No change on the left hilar mass on CT scan chest done on September 2018. #4 history of traumatic intracerebral hemorrhage: Stable, no complaints. #5 anxiety/depression: Stable, currently not on any medications. #6 fibromyalgia: Continue Lyrica and baclofen. #7 DVT prophylaxis: SCDs. This note was generated with [employer] dictation software. It may contain incorrect words, spelling, and punctuation that were not noted in checking the note before signing. Inpatient E&M: 67861 Init Hosp L2
--- NOTE | 2019-07-12 12:52 | CON.PCM_ITS ---
Problem List (1) Anxiety and depression Status: Chronic (2) ICH (intracerebral hemorrhage) Status: Resolved Qualifiers: Intracerebral hemorrhage etiology: traumatic Laterality: unspecified laterality Loss of consciousness presence/duration: with LOC of unspecified duration (3) GERD (gastroesophageal reflux disease) Status: Chronic Qualifiers: Esophagitis presence: esophagitis presence not specified Qualified Code(s): K21.9 - Gastro-esophageal reflux disease without esophagitis (4) Tobacco use Status: Chronic (5) COPD (chronic obstructive pulmonary disease) Status: Chronic Qualifiers: COPD type: emphysema Emphysema type: centrilobular Qualified Code(s): J43.2 - Centrilobular emphysema Comment: FEV1 75% (6) Obesity (BMI 30.0-34.9) Status: Chronic (7) Non-small cell carcinoma of left lung Status: Resolved (8) Fibromyalgia Status: Chronic (9) Laryngeal cancer Status: Chronic Reason for Consult Date of Consultation: 07/12/19 Reason for Consultation: New tracheostomy History of Present Illness: The patient is a 58 year old M, with past medical history listed below, who presented to [facility] for an elective tracheostomy. Patient had reported hoarseness for the last 6 to 8 months and was evaluated by ENT. Patient was found to have laryngeal cancer and there was some concern for patency. Patient is to have a tracheostomy in a staged procedure. Patient does have a previous history of non-small cell lung cancer status post chemotherapy and radiation back in 2017. Patient reportedly had declined pneumonectomy at that time. Patient does have a history of traumatic intracranial hemorrhage following a fall, but denies any seizure disorder. Following surgery, patient reported significant pain at the surgical site. Patient was given Dilaudid with some improvement. Patient has expectorating some bright red blood from the tracheostomy site, but blow-by oxygen is keeping saturations. Patient denies any nausea or vomiting. Patient has tolerated/past swallow evaluation. Review of systems otherwise negative from a constitutional, HEENT, respiratory, cardiovascular, GI, genitourinary, musculoskeletal, skin, neurologic, psychiatric and hematologic system unless stated above. Past Medical History Past Medical History (Chronic Problems): Chronic Problems (Last Updated 07/12/19 @ 12:[address] Karen Barnhart MD) Anxiety and depression (Chronic) Tremor (Chronic) GERD (gastroesophageal reflux disease) (Chronic) Tobacco use (Chronic) COPD (chronic obstructive pulmonary disease) (Chronic) FEV1 75% Obesity (BMI 30.0-34.9) (Chronic) Fibromyalgia (Chronic) Regional lymph node metastasis present (Chronic) Laryngeal cancer (Chronic) Respiratory failure (Chronic) Medical History: Medical History (Last Updated 07/12/19 @ 12:[address] Karen Barnhart MD) Depression F32.9 Left ankle surgery Med port placement Allergies No Known Allergies Allergy (Verified 07/06/19 13:17) Home Medications: Ambulatory Orders Medication Instructions Recorded Baclofen 30 mg PO TID 02/29/16 Pregabalin [Lyrica] 300 mg PO BID 08/04/16 Surgical History: Surgical History (Last Reviewed 06/13/19 @ 14:33 by Zarina Prakash) H/O arthroscopy of left knee Z98.890 Surgical History: - - L ankle hardward/surgery. Psychiatric History: Anxiety, Depression Smoking Status: Former smoker Alcohol: None Drugs: None - *Family History Maternal Family History: Family History (Last Reviewed 07/12/19 @ 12:[address] Karen Barnhart MD) Father Prostate cancer Skin cancer Mother Breast cancer Lung cancer History Items: Cancer Paternal Family History: Family History (Last Reviewed 07/12/19 @ 12:[address] Karen Barnhart MD) Father Prostate cancer Skin cancer Mother Breast cancer Lung cancer History Items: Cancer Review of Systems Comment: See HPI Objective: Previous testing was reviewed. Complete PFT (01/13/2017): Irreversible mild large airways obstructive ventilatory defect (FVC 80%, FEV1 75%, TLC 90%, DLCO 70%) Previous echo (July 06, 2019): Right bundle branch block with QTC of 435 CT chest (06/11/2019): Mild volume loss in the medial lingula without demonstrated pleural abnormality. Stable right hilar soft tissue density. Only mild emphysematous changes. - Physical Exam Vitals/I&O's: Vital Signs Temp Pulse Resp BP Pulse Ox 37.2 C 95 18 138/88 H 98 07/12/19 06:20 07/12/19 06:20 07/12/19 06:20 07/12/19 06:20 07/12/19 09:45 Oxygen Flow Rate (L/min) 3 Oxygen Delivery Method Nasal Cannula Weight: 108.8 kg Body Mass Index (BMI) 32.5 General: Alert, Oriented x3, Cooperative, No apparent distress, Well developed, Well nourished, - - Communicating regularly with tablet and paper HEENT: Atraumatic, PERRLA, EOMI, Normocephalic, - - No scleral icterus or injection noted Oral: Moist Mucosa, No Gingival or Mucosal Lesions/ Ulcerations Neck: - - New Shiley trach sutured in place. Clean, dry and intact. Mild bloody secretions expectorated with coughing Lungs: Clear to auscultation, Normal air movement, No rhonchi, No wheeze, No rales Cardiovascular: Regular rate, Regular Rhythm, Normal S1, Normal S2, No murmurs, No rub noted, No Gallop Abdomen: Bowel Sounds Present, Soft, Non Tender, Non-Distended, Obese Extremities: No clubbing, No cyanosis, No edema, Capillary Refill Less than 3 Seconds Skin: No rashes, No breakdown Musculoskeletal: No Tenderness to Palpation of Joints or Extremities Lymphatic: No Cervical, Supraclavicular, or Inguinal Adenopathy Neurological: Cranial nerves II-XII grossly intact, Neuro grossly intact, Motor Exam 5/5 strength throughout Psych/Mental Status: Alert and oriented to time, place, person, mood and affect Current Medications Acetaminophen (Tylenol) 650 mg PO Q6H PRN PRN PRN Reason: Pain Score 1-10/10 Hydromorphone HCl (Dilaudid Inj) 1 mg IV Q4H PRN PRN PRN Reason: Pain Score 6-10/10 Sodium Chloride () 1,000 mls @ 75 mls/hr IV .[id number] NELSON Ondansetron HCl (Zofran) 4 mg IV Q6H PRN PRN PRN Reason: NAUSEA/VOMITING Oxycodone HCl (Oxyir) 5 mg PO Q6H PRN PRN PRN Reason: Pain Score 6-10/10 Sodium Chloride () 10 - 40 ml IV UD PRN PRN Reason: SALINE FLUSH Clinical Impression(s) from Imaging Studies Chest X-Ray 07/06/19 13:38 IMPRESSION: Left midlung consolidation and/or mass. Electronically Signed: Brad Zheng MD at 14:12 EDT , Service support , Assessment/Plan RECOMMENDATIONS: 1. Add humidity to oxygen 2. Pain control per current orders 3. Cuff deflation per ENT 4. SCDs for DVT prophylaxis IMPRESSIONS: 1. Laryngeal cancer status post tracheostomy postoperative day #0 Patient appears to be doing well at this time. Patient is clearing mild secretions. Patient has responded well to Dilaudid therapy. Would recommend SCDs for DVT prophylaxis given recent surgical procedure. Anticipate transfer out of the intensive care unit tomorrow. Would recommend keeping a Shiley 6?0 cuffed trach at the bedside for emergency intervention. Chest x-ray was reviewed and shows no pneumothorax currently 2. History of non-small lung cancer/history of traumatic ICH/anxiety/depression/fibromyalgia Complicates care, management, recovery and prognosis. Now the patient is passed swallow evaluation he can be reinitiated on baseline medications. SCDs for DVT prophylaxis. Inpatient E&M: [id number] Init Hosp L2
--- NOTE | 2019-07-12 13:08 | CASEMGMT ---
RN CM Note: [facility] cannot accept pt. Call to [facility]- they are not accepting new trach patients at this time. Call to [facility]- office was closed, no answer. Call to [facility] - cannot accept referral. Call to [facility]-cannot accept referral. RN CM Assessment Note Presentation: Elective surgery: new tracheostomy, #8. Plan is for #6 to be placed on Tuesday. Intro role of CM and purpose of RN CM assessment to patient who is awake and able to participate. Pt is able to mouth words and write on . Demographics, PCP and Pharmacy verified. PCP: Specialists: Preferred Pharmacy: Insurance: Prescription Benefit: LNOK : Living Arrangements: Transportation: DME: [facility]: Patient DC goals: DC PLAN: RN CM advised to contact cm for any concerns/needs that may arise.
--- NOTE | 2019-07-12 13:31 | CASEMGMT ---
Addendum entered by Santiago Henderson 07/12/19 16:22: Call received from nurse @ office stating Per Dr. Marques, CM is to complete script. RN CM let nurse know that Dr. Marques needs to specify what size and cuffed or noncuffed trach needs to be ordered as extra for home, and RN CM cannot determine this without physician direction. Will await completed script prior to faxing to [facility]. -HHC has not been determined yet, and Dr. Marques has agreed to sign order for [facility] on discharge. Abiola LOBON RN ACM Original Note: RN CM Note: [facility] pt. Call to [facility]- they are not accepting new trach patients at this time. Call to [facility] - cannot accept referral. Call to [facility]-cannot accept referral. [facility] cannot accept. -call to [facility] is through [place]. Awaiting if nurse can service area -call to [facility] . Referral faxed for their review. RN CM Assessment Note Presentation: Elective surgery: new tracheostomy, #8. Plan is for #6 to be placed on Tuesday. Intro role of CM and purpose of RN CM assessment to patient who is awake and able to participate. Pt is able to mouth words and write on tablet. Demographics, PCP and Pharmacy verified. Spoke with pt to consider medical alert button for home. Pt given list for [facility] and list for other providers for medical alert. RN CM can assist pt if needed for this, or pt is considering waiting until trach is changed and he can speak to take care of at home. PCP: none per patient. Specialists: Dr. Marques- will have to follow for home care orders if Preferred Pharmacy: [facility] Insurance: caresource Prescription Benefit: yes LNOK : none. Pt had son listed in past, states he has mental issues and does not want him listed. EMILY CM spoke at length re: pt considering friend or extended family member that could be salesperson neckties/POA for him. He nodded that he would consider, but no name given at this time. Living Arrangements: lives independently. States no care needs prior to admission Transportation: drives. RN CM asked pt to consider family/friend who could assist with driving to f/u if needed. DME: none. Pt will need trach supplies. Script faxed to office, returned incomplete. Call to office to request script be filled out completely. HHC: see above. Great difficulty with home care as pt lives in [place] and currently many agencies are not accepting new patients. Patient DC goals: home DC PLAN: anticipate home with home care if able to set up. Abiola LOBON RN ACM
[2019-07-12] MEDS: oxyCODONE 5 MG Tablet PO ×2 (15:17→21:03)
[2019-07-12] MEDS: 0.9% Saline Lock 10 ML Syringe IV (15:27)
[2019-07-12] MEDS: 0.9% Normal Saline 1,000 ML 75 ML IV (15:27)
[2019-07-12] MEDS: Pregabalin 75 MG Capsule 300 MG PO (21:04)
[2019-07-12] MEDS: Baclofen 10 MG Tablet 20 MG PO (21:04)
[2019-07-13] VITALS (14 sets, daily range): BP systolic 123–152; BP diastolic 68–88; PULSE 83–101; RESP 12–20; TEMP 36.8–37; O2SAT 94–99
[2019-07-13] MEDS: 0.9% Normal Saline 1,000 ML 75 ML IV (03:21)
[2019-07-13] MEDS: Acetaminophen 325 MG Tablet 650 MG PO (05:24)
[2019-07-13] MEDS: Baclofen 10 MG Tablet 20 MG PO ×2 (05:24→15:00)
--- NOTE | 2019-07-13 06:46 | PCM.PN.INT ---
Subjective: Patient did well overnight. Patient has been on a trach mask and tolerating well. Balloon has been reduced and patient has a nice strong cough producing mild bloody secretions. No shortness of breath is reported. Pain is improving. General: Alert, Oriented x3, Cooperative, No apparent distress, Well developed, Well nourished HEENT: Atraumatic, PERRLA, EOMI, Normocephalic Oral: Moist Mucosa, No Gingival or Mucosal Lesions/ Ulcerations Neck: Supple, No JVD, No Nodes, Trachea Midline Lungs: Clear to auscultation, Normal air movement, No rhonchi, No wheeze, No rales Cardiovascular: Regular rate, Regular Rhythm, Normal S1, Normal S2, No murmurs, No rub noted, No Gallop Abdomen: Bowel Sounds Present, Soft, Non Tender, Non-Distended Extremities: No clubbing, No cyanosis, No edema, Capillary Refill Less than 3 Seconds Skin: No rashes, No breakdown Musculoskeletal: No Tenderness to Palpation of Joints or Extremities Lymphatic: No Cervical, Supraclavicular, or Inguinal Adenopathy Neurological: Cranial nerves II-XII grossly intact, Neuro grossly intact, Motor Exam 5/5 strength throughout Psych/Mental Status: Alert and oriented to time, place, person, mood and affect Vital Signs Temp Pulse Resp BP Pulse Ox 36.9 C 96 20 H 145/74 H 97 07/13/19 00:00 07/13/19 06:00 07/13/19 06:00 07/13/19 06:00 07/13/19 06:00 Oxygen Flow Rate (L/min) 3 Oxygen Delivery Method Trach Collar Weight: 107.5 kg Body Mass Index (BMI) 32.0 Intake and Output for Last 24 Hours 07/11/19 07/12/19 07/13/19 23:59 23:59 23:59 Intake Total 1517.92 / 1517.92 701.25 / 701.25 Output Total 885 / 885 450 / 450 Balance 632.92 / 632.92 251.25 / 251.25 Medical Necessity - Tobacco Use Smoking Status: Former smoker Assessment/Plan All Active Problems (Last Updated 07/12/19 @ 12:[address] Karen Barnhart MD) ICH (intracerebral hemorrhage) (Resolved) Non-small cell carcinoma of left lung (Resolved) RECOMMENDATIONS: 1. Add humidity to oxygen 2. Pain control per current orders 3. Cuff deflation per ENT 4. OK to transfer from ICU IMPRESSIONS: 1. Laryngeal cancer status post tracheostomy postoperative day #1 Patient appears to be doing well at this time. Patient is clearing mild bloody secretions. Patient's pain is improving. Would recommend SCDs for DVT prophylaxis given recent surgical procedure. Anticipate transfer out of the intensive care unit today. Would recommend keeping a Shiley 6?0 cuffed trach at the bedside for emergency intervention. Chest x-ray was reviewed and shows no pneumothorax currently 2. History of non-small lung cancer/history of traumatic ICH/anxiety/depression/fibromyalgia Complicates care, management, recovery and prognosis. Okay to reinitiate baseline medications. SCDs for DVT prophylaxis. Inpatient E&M: 69683 Subs Hosp L2
[2019-07-13 06:55] LABS: Absolute Lymphocyte Count 0.85 X10^3/uL (0.83-4.51); Absolute Neutrophil Count 6.5 X10^3/uL (2.0-7.7); Basophil# 0.01 X10^3/uL; Basophil% 0.1 % (0-1); Eosinophils% 2.4 % (0-5); Hematocrit 40.9 % (40-54); Hemoglobin 13.4 g/dL (13.0-16.5); Lymphocyte # 0.85 X10^3/ul (4.0); Mean Corp Hgb Conc 32.8 g/dL (32-36); Mean Corpuscular Hgb 29.8 pg (27.0-32.0); Mean Corpuscular Volume 90.9 fL (80-94); Mean Platelet Vol. 8.4 fl (6.2-12.0); Monocyte# 0.96 X10^3/uL; Monocyte% 11.3 % (0-10); NRBC Flagged by Analyzer 0 % (0-5); Neutrophil # 6.46 X10^3/uL (2.7-7.7); Neutrophil % 75.8 % (47-70); Platelet Count 191 K/mm3 (150-450); RBC Distribution Width CV 13.2 % (11.6-14.6); RBC Distribution Width SD 43.8 fl (35.1-43.9); White Blood Count 8.5 K/mm3 (4.4-11.0)
[2019-07-13 07:21] LABS: Anion Gap 5 (5-15); BUN 13 mg/dL (7-18); BUN/Creat Ratio 12.6 RATIO (10-20); Calcium,Total 8.3 mg/dL (8.5-10.1); Chloride 107 mmol/L (98-107); Creatinine, Serum 1.03 mg/dL (0.70-1.30); EST Glomerular Filtration Rate 79 mL/min (>60); Est Glom Filt Rate - Afr Amer 96 mL/min (>60); Glucose 107 mg/dL (74-106); Potassium 3.5 mmol/L (3.5-5.1); Sodium Level 141 mmol/L (136-145)
--- NOTE | 2019-07-13 08:06 | PCM.PROGNOTE ---
Subjective: Chief complaint: Follow-up after admission for postoperative medical management. Patient seen and examined. No acute events overnight. Pain at the tracheostomy site is significantly improved. No bleeding at the tracheostomy site. No other complaints. Vital signs are stable. - Physical Exam Vitals/I&O's: Vital Signs Temp Pulse Resp BP Pulse Ox 98.4 F 96 20 H 145/74 H 97 07/13/19 00:00 07/13/19 06:00 07/13/19 06:00 07/13/19 06:00 07/13/19 06:00 Oxygen Flow Rate (L/min) 3 Oxygen Delivery Method Trach Collar Weight: 236 lb 15.951 oz Body Mass Index (BMI) 32.0 Intake and Output for Last 24 Hours 07/11/19 07/12/19 07/13/19 23:59 23:59 23:59 Intake Total 1517.92 / 1517.92 701.25 / 701.25 Output Total 885 / 885 450 / 450 Balance 632.92 / 632.92 251.25 / 251.25 General: Alert, Oriented x3, Cooperative, No apparent distress HEENT: Atraumatic, PERRLA, EOMI Oral: Moist Mucosa, No Gingival or Mucosal Lesions/ Ulcerations Neck: Supple, No JVD, Trachea Midline, Thyroid Normal Size and Texture, - - Tracheostomy in place. Lungs: Clear to auscultation, Normal air movement, No rhonchi, No wheeze, No rales, Diminished Cardiovascular: Regular rate, Regular Rhythm, Normal S1, Normal S2, No murmurs Abdomen: Bowel Sounds Present, Soft, Non Tender, Non-Distended, No Hepato-splenomegaly Extremities: No clubbing, No cyanosis, No edema Skin: No rashes, No breakdown Lymphatic: No Cervical, Supraclavicular, or Inguinal Adenopathy Neurological: Cranial nerves II-XII grossly intact, Neuro grossly intact Psych/Mental Status: Normal Affect, Appropriate, Alert and oriented to time, place, person, mood and affect Laboratory Results 07/13/19 06:45: WBC 8.5, RBC 4.50 L, Hgb 13.4, Hct 40.9, MCV 90.9, MCH 29.8, MCHC 32.8, RDW Std Deviation 43.8, RDW Coeff of Hugh 13.2, Plt Count 191, MPV 8.4, Immature Gran % (Auto) 0.400, Neut % (Auto) 75.8 H, Lymph % (Auto) 10.0 L, [place] % (Auto) 11.3 H, Eos % (Auto) 2.4, Baso % (Auto) 0.1, Absolute Neuts (auto) 6.5, Absolute Lymphs (auto) 0.85, Nucleated RBC % 0 07/13/19 06:45: Sodium 141, Potassium 3.5, Chloride 107, Carbon Dioxide 29.0, Anion Gap 5, BUN 13, Creatinine 1.03, Estim Creat Clear Calc 87.90, Est GFR (MDRD) Af Amer 96, Est GFR (MDRD) Non-Af 79, BUN/Creatinine Ratio 12.6, Glucose 107 H, Calcium 8.3 L Current Medications Acetaminophen (Tylenol) 650 mg PO Q6H PRN PRN PRN Reason: Pain Score 1-10/10 Last Admin: 07/13/19 05:24 Dose: 650 mg Documented by: Baclofen (Lioresal) 20 mg PO TID [facility] Last Admin: 07/13/19 05:24 Dose: 20 mg Documented by: Hydromorphone HCl (Dilaudid Inj) 1 mg IV Q4H PRN PRN PRN Reason: Pain Score 6-10/10 Sodium Chloride () 1,000 mls @ 75 mls/hr IV .[id number] [facility] Last Admin: 07/13/19 03:21 Dose: 75 mls/hr Documented by: Ondansetron HCl (Zofran) 4 mg IV Q6H PRN PRN PRN Reason: NAUSEA/VOMITING Oxycodone HCl (Oxyir) 5 mg PO Q6H PRN PRN PRN Reason: Pain Score 6-10/10 Last Admin: 07/12/19 21:03 Dose: 5 mg Documented by: Pregabalin (Lyrica) 300 mg PO BID [facility] Last Admin: 07/12/19 21:04 Dose: 300 mg Documented by: Sodium Chloride () 10 - 40 ml IV UD PRN PRN Reason: SALINE FLUSH Last Admin: 07/12/19 15:27 Dose: 30 ml Documented by: Medical Necessity - Tobacco Use Smoking Status: Former smoker Assessment/Plan This is a 58 years old male patient underwent placement of tracheostomy for recent diagnosed laryngeal cancer causing upper obstruction and I am seeing this patient in consultation for postoperative medical management. #1 status post tracheostomy: Postoperative day 1. Patient has been on trach collar and pulse ox has been maintained normally, tolerating. This was done for upper obstruction due to pharyngeal mass. Vital signs are stable. Repeat routine blood work was unremarkable. Plan to continue same treatment, transfer to PCU if okay with ENT. #2 recent diagnosis of laryngeal cancer: Not receiving any treatment so far. Status post new tracheostomy. Patient will need to be seen by oncology probably as outpatient. #3 history of non-small cell lung cancer: Status post chemotherapy and radiation back on February,. Due to residual PET scan abnormalities, he was evaluated for pneumonectomy on January 2017 but patient declined. At this time, he is stable, in remission. No change on the left hilar mass on CT scan chest done on September 2018. #4 history of traumatic intracerebral hemorrhage: Stable, no complaints. #5 anxiety/depression: Stable, currently not on any medications. #6 fibromyalgia: Continue Lyrica and baclofen. #7 DVT prophylaxis: SCDs. This note was generated with [employer] dictation software. It may contain incorrect words, spelling, and punctuation that were not noted in checking the note before signing. Inpatient E&M: 00713 Subs Hosp L2
--- NOTE | 2019-07-13 08:55 | PCM.PN.SRG ---
Subjective: likely anxiety-related dyspnea last night around 630 per staff. no desaturation. did well while sleeping with normal vitals. - Physical Exam Vitals/I&O's: Vital Signs Temp Pulse Resp BP Pulse Ox 98.4 F 96 20 H 145/74 H 97 07/13/19 00:00 07/13/19 06:00 07/13/19 06:00 07/13/19 06:00 07/13/19 06:00 Oxygen Flow Rate (L/min) 3 Oxygen Delivery Method Trach Collar Weight: 107.5 kg Body Mass Index (BMI) 32.0 Intake and Output for Last 24 Hours 07/11/19 07/12/19 07/13/19 23:59 23:59 23:59 Intake Total 1517.92 / 1517.92 701.25 / 701.25 Output Total 885 / 885 450 / 450 Balance 632.92 / 632.92 251.25 / 251.25 General: Alert, Oriented x3, Cooperative Neck: - - 8DCT in place. no bleeding. Laboratory Results 07/13/19 06:45: WBC 8.5, RBC 4.50 L, Hgb 13.4, Hct 40.9, MCV 90.9, MCH 29.8, MCHC 32.8, RDW Std Deviation 43.8, RDW Coeff of Hugh 13.2, Plt Count 191, MPV 8.4, Immature Gran % (Auto) 0.400, Neut % (Auto) 75.8 H, Lymph % (Auto) 10.0 L, Reeves % (Auto) 11.3 H, Eos % (Auto) 2.4, Baso % (Auto) 0.1, Absolute Neuts (auto) 6.5, Absolute Lymphs (auto) 0.85, Nucleated RBC % 0 07/13/19 06:45: Sodium 141, Potassium 3.5, Chloride 107, Carbon Dioxide 29.0, Anion Gap 5, BUN 13, Creatinine 1.03, Estim Creat Clear Calc 87.90, Est GFR (MDRD) Af Amer 96, Est GFR (MDRD) Non-Af 79, BUN/Creatinine Ratio 12.6, Glucose 107 H, Calcium 8.3 L Current Medications Acetaminophen (Tylenol) 650 mg PO Q6H PRN PRN PRN Reason: Pain Score 1-10/10 Last Admin: 07/13/19 05:24 Dose: 650 mg Documented by: Baclofen (Lioresal) 20 mg PO TID [facility] Last Admin: 07/13/19 05:24 Dose: 20 mg Documented by: Hydromorphone HCl (Dilaudid Inj) 1 mg IV Q4H PRN PRN PRN Reason: Pain Score 6-10/10 Sodium Chloride () 1,000 mls @ 75 mls/hr IV .[id number] [facility] Last Admin: 07/13/19 03:21 Dose: 75 mls/hr Documented by: Ondansetron HCl (Zofran) 4 mg IV Q6H PRN PRN PRN Reason: NAUSEA/VOMITING Oxycodone HCl (Oxyir) 5 mg PO Q6H PRN PRN PRN Reason: Pain Score 6-10/10 Last Admin: 07/12/19 21:03 Dose: 5 mg Documented by: Pregabalin (Lyrica) 300 mg PO BID [facility] Last Admin: 07/12/19 21:04 Dose: 300 mg Documented by: Sodium Chloride () 10 - 40 ml IV UD PRN PRN Reason: SALINE FLUSH Last Admin: 07/12/19 15:27 Dose: 30 ml Documented by: Medical Necessity - Tobacco Use Smoking Status: Former smoker Assessment/Plan 58 year old male with a history of non small cell lung cancer, 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 he likely has a [id number] SCC of the larynx. additionally, his recent chest CT looks concerning for recidivistic disease of his lung cancer. i am not an expert on the latter. however, he likely needs a total laryngectomy with adjuvant therapy. he has no support system. i believe sending him home with the current COVID crisis is not the best course for him. i will be contacting head and neck cancer colleagues to facilitate a transfer for inpatient surgical therapy.
--- NOTE | 2019-07-13 08:57 | CASEMGMT ---
Addendum entered by Santiago Henderson 07/13/19 09:54: Call to [facility]: notified pt may not be requiring Home Care, but to please keep record for now. Abiola GALINDO Original Note: EMILY ASHBY Note: [employer] insurances for pt to transfer to tertiary care. [facility], [facility], [facility], [facility], [facility], [facility]. Per Dr. Marques, would like to transfer pt to [facility]. Abiola JAIMESM
[2019-07-13] MEDS: Pregabalin 75 MG Capsule 300 MG PO (15:00)
== END 2019-07-13 17:30 | disposition short-term general hospital (02) | DRG 98 ==
LOC: ICU 10:33
PROVIDERS: Hospitalist; Admitting Provider Otolaryngology; Referring Provider Otolaryngology; Visit Provider Otolaryngology
PROC: 0B110F4 Bypass Trachea to Cutaneous with Tracheostomy Device, Open Approach (ICD-10-PCS; principal; 2019-07-12 07:15)
PROC: 0CJS8ZZ Inspection of Larynx, Via Natural or Artificial Opening Endoscopic (ICD-10-PCS; CPT 31575; 2019-07-12 07:15)
DX: C32.9 Malignant neoplasm of larynx, unspecified (principal); J96.90 Respiratory failure, unspecified, unspecified whether with hypoxia or hypercapnia; M79.7 Fibromyalgia; Z92.21 Personal history of antineoplastic chemotherapy; Z92.3 Personal history of irradiation; Z87.891 Personal history of nicotine dependence; Z87.820 Personal history of traumatic brain injury; Z85.118 Personal history of other malignant neoplasm of bronchus and lung
CPT/HCPCS: 36415; 71046; 80048; 85025; 85027; 88305; 88307; 88341; 88342; 92507; 92610; 93005; J7030; J7120; A4216; J2405

== ENCOUNTER 2019-08-29 10:33 | Emergency (ER) | payer MEDICAID, SELFPAY ==
[2019-07-27 11:28] VITALS: BMI 30.9
[2019-08-28 10:56] VITALS: BMI 30.9
[2019-08-29 10:36] VITALS: BP 122/60; PULSE 94; RESP 17; TEMP 36.6; O2SAT 96; BMI 31.4
--- NOTE | 2019-08-29 11:10 | ED.VISSUMM ---
- ER Visit Summary Date of Service: 08/29/19 Chief Complaint: Unable to suction trach History of Present Illness: The patient is a [address] Jean-Baptiste. He has a history of laryngeal cancer and is getting chemotherapy for this. His last dose was August 13. He is scheduled to have radiation today. Patient had a tracheostomy placed on in June by Dr. Marques and was transferred to for his laryngeal cancer. He reports that they told him he did not need to have surgery for this and changed his 8 Shiley to a 6 Shiley trach. States that over the past 4 days it is gradually gotten to where he can suction his trach. Since last night is been able to suction his trach at all. He does report he has moderate shortness of breath. Patient denies any fever, chills, cough, or other complaints. He denies any bleeding from around his trach. Physical Examination: Vitals: Stable. Afebrile. General: Well-nourished and well-developed. Head: Normocephalic atraumatic. Neck: Supple, no lymphadenopathy. No JVD. Nontender. Trach site is clean and dry. There is no erythema is to suggest infection. There is no blood around this. Cardiovascular: Regular rate and rhythm. No murmurs. Respiratory: No respiratory distress. Clear to auscultation bilaterally. Abdominal: Soft, nontender, nondistended, normal bowel sounds. No guarding, rebound, or peritoneal signs. Back: Nontender. Extremities: Nontender, no edema. Skin: Normal color, no rash. Neurologic: Alert and oriented ?3. Cranial nerves II through XII are intact. Normal strength and sensation. Psych: Normal affect. Emergency Department Course and Treatment: Patient was discussed with Dr. Marques who reports that there should not be a problem changing his trach. The patient had a trach strap removed and the trach actually came out on its own. A new trach was placed with no resistance, pain, or bleeding. The patient tolerated it well and reports that he can now breathe normally again. Treatment Plan: Patient will be discharged instructions to follow-up with Dr. Marques as needed. Return to the emergency department for any worsening symptoms. Disposition: To home in improved and stable condition. Impression: 1. Tracheostomy change. This note was generated with [employer] software. It may contain incorrect words, spelling, and punctuation that were not noted in review of the chart prior to signing ED Disposition - Plan for ED Patient: Instructions: Tracheostomy Care Referrals: Yamil Ibarra MD [STAFF PHYSICIAN] - As Needed
--- NOTE | 2019-08-29 11:23 | ED.RN ---
dr brooks at bedside and able to replace trach. pt refused suctioning post placement saying will make me cough and throw up pt having to cover trach to speak as before could speak plainly without occluding. noe well.
== END 2019-08-29 11:24 | disposition home or self-care (01) ==
LOC: ED 11:14
PROVIDERS: Emergency Provider Emergency Medicine
DX: Z46.82 Encounter for fitting and adjustment of non-vascular catheter (principal); Z93.0 Tracheostomy status

== ENCOUNTER 2019-09-03 12:00 | Outpatient (RCR) | payer MEDICAID, SELFPAY ==
[2019-07-27 11:28] VITALS: BMI 30.9
[2019-08-28 10:56] VITALS: BMI 30.9
== END 2019-09-03 23:59 | disposition home or self-care (01) ==
LOC: NS 12:00
PROVIDERS: Visit Provider Internal Medicine Hematology & Oncology
DX: Z71.3 Dietary counseling and surveillance (principal); C32.9 Malignant neoplasm of larynx, unspecified; R63.4 Abnormal weight loss
CPT/HCPCS: 97802

== ENCOUNTER 2019-10-18 11:57 | Emergency (ER) | payer MEDICAID, SELFPAY ==
[2019-07-27 11:28] VITALS: BMI 30.9
[2019-10-02 10:53] VITALS: BMI 28.6
[2019-10-18 11:58] VITALS: BP 112/61; PULSE 71; RESP 16; TEMP 36.4; O2SAT 95; BMI 27.1
--- NOTE | 2019-10-18 12:36 | ED.VIS.GEN ---
History of Present Illness Chief Complaint: Wound Check Informant: Patient Onset: Weeks Current Severity: Mild Maximum Severity: Mild Narrative: The patient presents asking that what appears to be a suture be removed from his prior tracheostomy neck site The patient is in no distress he has a chronically hoarse voice, he has no fever or cough no stridor or drooling, Patient indicates that he was recently diagnosed with laryngeal cancer, he was evaluated by ENT multiple providers it was recommended he have a tracheostomy because of the nature of the cancer and that he would be undergoing radiation therapy He completed the radiation therapy a few weeks ago he had a tracheostomy in place and was asked to keep it in place pending further testing staging etc. however the patient reports 10 days ago he simply remove the tracheostomy on his own he did inform the physicians that he had done so He understood all of the above the potential airway compromise and need for tracheostomy but did not wish to have the tracheostomy so he just simply took it off He has been irritated by what appears to be a suture that remains in the tracheostomy stoma site that is healing he spoke with his ENT office they could not see him immediately later they called him and said he could be seen in the afternoon he was brought to the emergency department He is doing well no fever no cough the chronically hoarse voice since onset of his cancer and his surgery Past Medical History - Allergies and Home Meds Allergies/Adverse Reactions: Allergies No Known Allergies Allergy (Verified 10/18/19 12:01) Primary Care Physician: Care Physician,No Primary [Primary Care Provider] - Past Medical History: - - Laryngeal cancer recent tracheostomy Surgical History: - - L ankle hardward/surgery. Smoking Status: Former smoker - Family History Maternal Family History: Family History (Last Reviewed 10/02/19 @ 10:53 by Lizbet Mitchell) Father Prostate cancer Skin cancer Mother Breast cancer Lung cancer Family History: Reports: Cancer - Mother w/ metastatic Breast/?Lung CA. Paternal Family History: Family History (Last Reviewed 10/02/19 @ 10:53 by Lizbet Mitchell) Father Prostate cancer Skin cancer Mother Breast cancer Lung cancer Family History: Reports: Cancer - Father w/ Prostate CA. Review of Systems General: Denies: Chills, Fever, Sweats Eyes: Denies: Visual changes - bilaterally, Diplopia ENT: Reports: - - Rotation at tracheostomy stoma site. Denies: Rhinorrhea, Sore throat Cardiovascular: Denies: Chest pain, Palpitations Respiratory: Denies: Dyspnea, Cough, Dyspnea on exertion Gastrointestinal: Denies: Abdominal pain, Nausea, Vomiting, Diarrhea, Melena, Hematochezia Genitourinary: Denies: Dysuria, Hematuria, Frequency Musculoskeletal: Denies: Back pain, Extremity Pain Skin: Denies: Rash, Wounds Neurological: Denies: Headache, Weakness, Numbness Physical Exam Vital Signs/Narrative: Vital Signs Temp Pulse Resp BP Pulse Ox 10/18/19 11:58 97.5 F L 71 16 112/61 95 General: Well nourished, Well developed, No Acute Distress Head: Normocephalic, Atraumatic Eyes: Perrl, EOMI ENT: Moist mucous membranes, No rhinorrhea, - - Patient is in no distress he is breathing through his mouth his HEENT exam is really unremarkable he has the neck tracheostomy stoma site there may be a pinhole of air movement there does appear to be a greenish type suture material I cannot really tell where it starts or ends I might be just seeing details there is no signs of infection no pain no subcu air his lungs sound clear he is in no distress Neck: Supple, Nontender Cardiovascular: Regular rate, Regular rhythm, No murmurs Respiratory: No distress, CTA bilaterally, Chest nontender Abdomen: Soft, Nontender, Nondistended, Normal bowel sounds Back: Nontender, Normal Inspection Extremities: Nontender, No edema Skin: Normal color, No rash Neurological: Alert, Oriented x3, Cranial nerves II-XII grossly intact, Normal Strength, Normal Sensation Psychological: Normal affect, Normal Mood Diagnostic/Tx/Re-eval - Medical Decision Making I spoke with his ENT physician Dr. Salmeron we had a long conversation the patient has been cautioned that he needs the tracheostomy due to the fact that the laryngeal cancer could obstruct his airway, Dr. Salmeron would like to see the patient as scheduled today in the office at 1:30 PM to further evaluate all of the above Explained all of the above to the patient he is under the impression that if he goes to see his ENT he will be forced to have a tracheostomy and he does not wish to have a tracheostomy under any circumstances even if it means his , I explained to him that no one will do anything to him against his wishes and he will go to the office at 130 to be seen Home stable final impression throat cancer status post patient removal of tracheostomy ED Disposition - Plan for ED Patient: Diagnosis: Throat cancer tracheostomy Instructions: ED Wound Check Post Op No Infec Referrals: Care Physician,No Primary [Primary Care Provider] - Additional Instructions: Go directly to your ENT doctor's office today
== END 2019-10-18 13:09 | disposition home or self-care (01) ==
LOC: ED 12:38
PROVIDERS: Emergency Provider Emergency Medicine
DX: C14.0 Malignant neoplasm of pharynx, unspecified (principal); Z93.0 Tracheostomy status; Z87.891 Personal history of nicotine dependence
CPT/HCPCS: 99282

== ENCOUNTER 2019-12-07 10:00 | Emergency (ER) | payer MEDICAID, SELFPAY ==
[2019-07-27 11:28] VITALS: BMI 30.9
[2019-11-05 08:15] VITALS: BMI 28.0
[2019-12-07 10:01] VITALS: BP 147/108; PULSE 116; RESP 20; TEMP 36.6; O2SAT 97; BMI 26.9
[2019-12-07 10:14] VITALS: O2SAT 94
--- NOTE | 2019-12-07 10:32 | CT_ITS ---
STUDY: CTA NECK WITH CONTRAST REASON FOR EXAM: Male, 59 years old. INCREASED SOB X 1 WEEK. H/O LARYNGEAL CA AND LUNG CA RADIATION DOSAGE (If Supplied By Facility): CTDIvol = ( 21.062 ) mGy, DLP = ( 3224.72 ) mGycm TECHNIQUE: CT angiography with multi-detector data acquisition was performed from the aortic arch to the skull base following intravenous administration of IV 100mL [id number]-370. MIP images were reconstructed from the axial data set. Post-processing of the angiographic images was performed, with multiplanar reformation and 3D reconstruction. Individualized dose optimization techniques were used for this CT. COMPARISON: None. FINDINGS: There is evidence of a 2.3 cm x 2.2 cm soft tissue mass in the right side of the hypopharynx with involvement of the epiglottis. There is narrowing of the airway in the region of the larynx. A right-sided portacatheter is seen with the tip in the superior vena cava. Inhomogeneous enlargement of the thyroid gland more prominent on the right side. AORTIC ARCH: There is a bovine origin of the great vessels arising from the aortic arch with a common origin of the brachiocephalic and left common carotid artery. Normal origin of the left subclavian artery. RIGHT CAROTID ARTERIES: Normal right common carotid artery (CCA). Normal right common carotid bulb. Normal origin of the right internal carotid (ICA) artery without a hemodynamically significant stenosis. Normal visualized cervical portion of the right internal carotid artery. Normal origin of the right external carotid artery (ECA). LEFT CAROTID ARTERIES: Normal left common carotid artery (CCA). Normal left common carotid bulb. Normal origin of the left internal carotid (ICA) artery without a hemodynamically significant stenosis. Normal visualized cervical portion of the left internal carotid artery. Normal origin of the left external carotid artery (ECA). VERTEBRAL ARTERIES: There is enhancement within the bilateral vertebral arteries with a small left vertebral artery, and a dominant right vertebral artery. CT/CTA Neck W/WO Contrast IMPRESSION: Normal bilateral cervical carotid and vertebral arteries. Soft tissue mass in the right side of the upper findings with involvement of the epiglottis. There is narrowing of the laryngeal airway. Electronically Signed: Arley Latham, at 12:55 EDT , Service support ,
--- NOTE | 2019-12-07 10:33 | ED.VIS.GEN ---
History of Present Illness Chief Complaint: Shortness of Breath Informant: Patient Narrative: 59-year-old male with shortness of breath. He feels like it is his throat that is causing the issue. He states this is been ongoing for about a week where he feels his throat is tight. He has a history of voicebox cancer. He states he does not have pain with this. He is not had fever. He is status post chemotherapy and radiation in September. He has not had follow-up imaging. Prior to last week he had been doing well. Prior similar symptoms: Yes - Past Medical History (1) Hypokalemia Status: Resolved (2) Anxiety and depression Status: Chronic (3) Tremor Status: Chronic (4) GERD (gastroesophageal reflux disease) Status: Chronic (5) COPD (chronic obstructive pulmonary disease) Status: Chronic Comment: FEV1 75% (6) Non-small cell carcinoma of left lung Status: Chronic (7) Fibromyalgia Status: Chronic (8) Laryngeal cancer Status: Chronic (9) Chemotherapy management, encounter for Status: Chronic Past Medical History - Allergies and Home Meds Allergies/Adverse Reactions: Allergies No Known Allergies Allergy (Verified 11/05/19 08:14) Primary Care Physician: Care Physician,No Primary [Primary Care Provider] - Prior records reviewed: Yes Past Medical History: - - Reviewed Surgical History: - - L ankle hardward/surgery. Smoking Status: Former smoker Alcohol: None Drugs: None - Family History Maternal Family History: Family History (Last Reviewed 11/05/19 @ 08:14 by Glo Bates) Father Prostate cancer Skin cancer Mother Breast cancer Lung cancer Family History: Reports: Cancer - Mother w/ metastatic Breast/?Lung CA. Paternal Family History: Family History (Last Reviewed 11/05/19 @ 08:14 by Glo Bates) Father Prostate cancer Skin cancer Mother Breast cancer Lung cancer Family History: Reports: Cancer - Father w/ Prostate CA. Review of Systems General: Denies: Chills, Fever, Sweats Eyes: Denies: Visual changes - bilaterally, Diplopia ENT: Reports: - - Anterior neck pain and sensation of tightening in throat Cardiovascular: Denies: Chest pain Respiratory: Reports: Dyspnea. Denies: Cough Gastrointestinal: Denies: Abdominal pain, Nausea Genitourinary: Denies: Dysuria Musculoskeletal: Denies: Myalgias, Arthralgias Skin: Denies: Rash Neurological: Denies: Headache, Weakness Physical Exam Vital Signs/Narrative: Vital Signs Temp Pulse Resp BP Pulse Ox 12/07/19 10:01 97.8 F 116 H 20 H 147/108 H 97 Inital Vital Signs reviewed: Yes General: No Acute Distress Head: Normocephalic, Atraumatic Eyes: Perrl ENT: Moist mucous membranes Neck: - - Mild stridor on exam without stethoscope. There appears to be some swelling in the anterior neck as well. It is not tender to palpation. There is no crepitance. Previous tracheostomy site is noted. Cardiovascular: Regular rate, Regular rhythm Respiratory: No distress, Wheezing Extremities: Nontender, No edema Skin: Normal color, No rash Neurological: Alert, Oriented x3 Diagnostic/Tx/Re-eval Clinical Impression(s) from Imaging Studies Neck CTA 12/07/19 10:32 IMPRESSION: Normal bilateral cervical carotid and vertebral arteries. Soft tissue mass in the right side of the upper findings with involvement of the epiglottis. There is narrowing of the laryngeal airway. Electronically Signed: Arley Latham, at 12:55 EDT , Service support , Chest CTA 12/07/19 10:42 IMPRESSION: No evidence of colon and listen. Stable left perihilar mass. New 1.6 cm x 1.2 ANJEL nodule in the posterior superior segment of the left lower lobe. Electronically Signed: Arley Latham at 12:21 EDT , Service support , Chest X-Ray 12/07/19 11:33 IMPRESSION: Stable examination. Persistent left perihilar infiltration and/or fibrosis. Electronically Signed: Arley Latham at 12:24 EDT , Service support , Laboratory Data 12/07/19 12/07/19 10:46 10:46 WBC 10.3 RBC 4.75 Hgb 14.7 Hct 44.7 MCV 94.1 H MCH 30.9 MCHC 32.9 RDW Std Deviation 45.5 H RDW Coeff of Hugh 13.2 Plt Count 248 MPV 8.8 Immature Gran % (Auto) 0.500 Neut % (Auto) 82.8 H Lymph % (Auto) 3.6 L [place] % (Auto) 10.8 H Eos % (Auto) 2.2 Baso % (Auto) 0.1 Absolute Neuts (auto) 8.5 H Absolute Lymphs (auto) 0.37 L Nucleated RBC % 0 Differential Comment Platelet Estimate ADEQUATE RBC Morphology NORM C+C Sodium 140 Potassium 3.6 Chloride 106 Carbon Dioxide 32.0 Anion Gap 2 L BUN 15 Creatinine 0.88 Estim Creat Clear Calc 101.65 Est GFR (MDRD) Af Amer 114 Est GFR (MDRD) Non-Af 95 BUN/Creatinine Ratio 17.0 Glucose 97 Calcium 9.2 Troponin I < 0.015 - Medical Decision Making Patient presents with shortness of breath. He feels his throat is tightening. He is not hypoxic or tachypneic. His vital signs are normal he is a little tachycardic. He is not complaining of any chest pain or chest tightness but he is wheezing on examination. Patient was given Decadron and breathing treatments and felt improved after this. Lab work is unremarkable. CTA of the chest shows a new pulmonary nodule in the left lower lobe. CTA of the neck shows soft tissue mass in the right side of the upper findings with involvement of the epiglottis. There is narrowing of the laryngeal airway. I did discuss this with care of the nurse practitioner at his [facility] office and she was willing to follow-up outpatient if he was amenable given that his vital signs are normal and he is not requiring any oxygen. His symptoms are much improved after breathing treatments. He does have the mass in his throat however does not appear to be causing significant impingement at this time. He was counseled that if this worsens at any time should return to the emergency room for repeat evaluation. Otherwise the plan is to have him follow-up with his pilot control operator helper for a lung biopsy of the new pulmonary nodule and reevaluation of this mass in his neck. He is amenable to this plan. Patient stable for discharge at this time. Impression: 1. COPD exacerbation 2. Soft tissue mass of the neck with involvement of the epiglottis 3. New left lower lobe pulmonary nodule ED Disposition - Plan for ED Patient: Disposition: Home or Assisted Living Instructions: ED COPD Flare, ED Nodule Solitary Pulmonary Prescriptions: predniSONE tablet 60 mg PO DAILY #5 tab Transmission Status: Pending to [facility] Albuterol Inhaler [Ventolin Hfa] 1 - 2 puff INHALATION Q4H PRN PRN #1 inhaler PRN Reason: Wheezing Transmission Status: Pending to [facility] Referrals: Care Physician,No Primary [Primary Care Provider] - Additional Instructions: I spoke with Nery the nurse practitioner at x-ray pilot control operator [facility] office. She states that she will have you seen on Tuesday. States she wants to set you up for a lung biopsy for your new nodule. She will also evaluate your new throat mass.
--- NOTE | 2019-12-07 10:42 | CT_ITS ---
STUDY: CTA CHEST REASON FOR EXAM: Male, 59 years old. INCREASED SOB X 1 WEEK. CURRENT THROAT CA. RADIATION DOSAGE (If Supplied By Facility): CTDIvol = ( 21.062 ) mGy, DLP = ( 3224.72 ) mGycm TECHNIQUE: The examination was performed with the intravenous administration of IV 100 ML ISOVUE 370. Post-processing of the angiographic images was performed, with multiplanar reformation and 3D reconstruction. Individualized dose optimization techniques were used for this CT. COMPARISON: Comparison is made with prior study dated 06/11/2019. FINDINGS: Normal enhancement of the main pulmonary artery and right and left pulmonary arteries. Normal enhancement of the bilateral peripheral pulmonary arteries. There is no demonstrated pulmonary embolism. Normal thoracic aorta and visualized great vessels. There is no demonstrated aortic dissection. Normal heart and pericardium. Normal mediastinum. Normal hilar regions. Normal visualized trachea and bronchi. The lungs are well expanded. Stable right hilar mass with increased markings in the surrounding parenchyma. There is a 1.2 cm x 1.6 cm nodule in the superior segment of the left lower lobe. This was not seen on prior study. Follow-up is recommended. Normal pleura. Normal chest wall structures. There are degenerative changes of thoracic spine. Normal visualized upper abdomen. CT/CTA Chest W/WO Contrast IMPRESSION: No evidence of colon and listen. Stable left perihilar mass. New 1.6 cm x 1.2 ANJEL nodule in the posterior superior segment of the left lower lobe. Electronically Signed: Arley Latham, at 12:21 EDT , Service support ,
[2019-12-07 10:51] VITALS: PULSE 97; RESP 26
[2019-12-07] MEDS: Albuterol 2.5 MG/3 ML VIAL.NEB. INHALATION (10:51)
[2019-12-07] MEDS: Ipratropium/Albuterol Sulfate 3 ML AMPUL.NEB INHALATION (10:51)
[2019-12-07] MEDS: dexAMETHasone 10 MG/ML Vial IV (10:55)
[2019-12-07 11:00] VITALS: BP 126/73; PULSE 101; RESP 15; TEMP 36.4; O2SAT 98
[2019-12-07 11:05] LABS: Absolute Lymphocyte Count 0.37 X10^3/uL (0.83-4.51); Absolute Neutrophil Count 8.5 X10^3/uL (2.0-7.7); Basophil# 0.01 X10^3/uL; Basophil% 0.1 % (0-1); Eosinophil# 0.23 X10^3/uL; Eosinophils% 2.2 % (0-5); Hematocrit 44.7 % (40-54); Hemoglobin 14.7 g/dL (13.0-16.5); Lymphocyte # 0.37 X10^3/ul (4.0); Lymphocyte % 3.6 % (19-41); Mean Corp Hgb Conc 32.9 g/dL (32-36); Mean Corpuscular Hgb 30.9 pg (27.0-32.0); Mean Corpuscular Volume 94.1 fL (80-94); Mean Platelet Vol. 8.8 fl (6.2-12.0); Monocyte# 1.11 X10^3/uL; Monocyte% 10.8 % (0-10); NRBC Flagged by Analyzer 0 % (0-5); Neutrophil # 8.54 X10^3/uL (2.7-7.7); Neutrophil % 82.8 % (47-70); POSITIVE DIFFERENTIAL YES; Platelet Count 248 K/mm3 (150-450); RBC Distribution Width CV 13.2 % (11.6-14.6); RBC Distribution Width SD 45.5 fl (35.1-43.9); Red Blood Count 4.75 M/mm3 (4.6-6.2); White Blood Count 10.3 K/mm3 (4.4-11.0)
[2019-12-07 11:13] LABS: Differential Indicated SCAN CRITERIA MET
[2019-12-07 11:15] LABS: Anion Gap 2 (5-15); BUN 15 mg/dL (7-18); Calcium,Total 9.2 mg/dL (8.5-10.1); Chloride 106 mmol/L (98-107); Creatinine, Serum 0.88 mg/dL (0.70-1.30); EST Glomerular Filtration Rate 95 mL/min (>60); Est Glom Filt Rate - Afr Amer 114 mL/min (>60); Estimated Creatinine Clearance 101.65 ml/min; Glucose 97 mg/dL (74-106); Potassium 3.6 mmol/L (3.5-5.1); Sodium Level 140 mmol/L (136-145)
--- NOTE | 2019-12-07 11:33 | RAD_ITS ---
STUDY: X-RAY CHEST REASON FOR EXAM: Male, 59 years old. DYSPNEA /SOB TECHNIQUE: Single AP portable view of the chest. COMPARISON: Comparison is made with prior study dated 07/06/2019. FINDINGS: A right-sided portacatheter is seen with the tip at the junction of the superior vena cava and right atrium. EKG electrodes are seen. Persistent increased markings in the left infrahilar region. There is no demonstrated pleural abnormality. There is mild cardiac enlargement. Normal mediastinum and oliverio. Normal visualized pulmonary arteries. Normal visualized aortic arch and descending thoracic aorta. Normal visualized thoracic spine. Normal visualized ribs, clavicles, and shoulders. There is no demonstrated abnormality of the visualized soft tissue structures of the upper abdomen. RAD/Chest 1 View (Portable) IMPRESSION: Stable examination. Persistent left perihilar infiltration and/or fibrosis. Electronically Signed: Arley Latham, at 12:24 EDT , Service support ,
[2019-12-07 11:34] LABS: Platelet Estimate ADEQUATE (ADEQ); Red Cell Morphology NORM C+C NORMAL (NORM C&C)
--- NOTE | 2019-12-07 13:38 | ED.RN ---
DR STRONG PAGED FOR DR KING
[2019-12-07 13:41] VITALS: BP 122/85; PULSE 106; RESP 12; O2SAT 97
[2019-12-07 14:40] VITALS: BP 122/85; PULSE 113; RESP 20; O2SAT 98
--- NOTE | 2019-12-07 14:41 | ED.RN ---
THIS NURSE REVIEWED D/C INSTRUCTIONS WITH PT. PT VERBALIZED UNDERSTANDING OF INSTRUCTIONS. IV D/C. IV CATHETER INTACT. PT TOLERATED WELL. PT DENIES FURTHER NEEDS OR QUESTIONS AT THIS TIME.
== END 2019-12-07 14:42 | disposition home or self-care (01) ==
PROVIDERS: Emergency Provider Student in an Organized Health Care Education/Training Program
DX: J44.1 Chronic obstructive pulmonary disease with (acute) exacerbation (principal); R22.1 Localized swelling, mass and lump, neck; Z92.3 Personal history of irradiation; Z87.891 Personal history of nicotine dependence; Z85.21 Personal history of malignant neoplasm of larynx
CPT/HCPCS: 70498; 71045; 71275; 80048; 84484; 85025; 93005; 94640; 96361; 96374; 99284; J7030; Q9967

== ENCOUNTER 2020-01-06 22:50 | Emergency (ER) | payer MEDICAID, SELFPAY ==
[2019-07-27 11:28] VITALS: BMI 30.9
[2019-12-13 11:32] VITALS: BMI 27.5
[2020-01-06 22:52] VITALS: BP 120/71; PULSE 119; RESP 18; TEMP 36.2; O2SAT 92; BMI 25.7
[2020-01-06 23:02] VITALS: RESP 30; O2SAT 94; O2SAT 95
[2020-01-06 23:05] VITALS: BP 120/71; PULSE 119; RESP 30; TEMP 36.2; O2SAT 95
--- NOTE | 2020-01-06 23:17 | RAD_ITS ---
STUDY: X-RAY CHEST REASON FOR EXAM: Male, 59 years old. C/O SOB SINCE MID NOV -- HX OF THROAT CA TECHNIQUE: AP protable COMPARISON: 12/07/2019. FINDINGS: There is a right Port-A-Cath with tip tracking into the SVC. The cardiac and mediastinal silhouettes are within normal limits. The right lung is clear. There is persistent left perihilar opacity also seen on prior PET/CT from 12/11/2019. Normal visualized thoracic spine. Normal visualized ribs, clavicles, and shoulders. There is no demonstrated abnormality of the visualized soft tissue structures of the upper abdomen. RAD/Chest 1 View (Portable) IMPRESSION: Linear left perihilar airspace opacity as seen on PET/CT which may be due to underlying fibrosis or scarring. No new airspace opacities. Neoplastic process considered less likely due to more linear configuration. Electronically Signed: Graham Holcomb, at 0:17 EDT Tel , Service support ,
[2020-01-06 23:40] LABS: Anion Gap 4 (5-15); BUN 17 mg/dL (7-18); BUN/Creat Ratio 14.4 RATIO (10-20); Calcium,Total 9.2 mg/dL (8.5-10.1); Chloride 104 mmol/L (98-107); Creatinine, Serum 1.18 mg/dL (0.70-1.30); EST Glomerular Filtration Rate 68 mL/min (>60); Est Glom Filt Rate - Afr Amer 82 mL/min (>60); Glucose 97 mg/dL (74-106); Potassium 3.7 mmol/L (3.5-5.1); Sodium Level 141 mmol/L (136-145)
[2020-01-06 23:50] LABS: Basophil# 0.01 X10^3/uL; Basophil% 0.1 % (0-1); Eosinophil# 0.07 X10^3/uL; Eosinophils% 0.6 % (0-5); Hematocrit 47.2 % (40-54); Hemoglobin 14.9 g/dL (13.0-16.5); Lymphocyte % 5.5 % (19-41); Mean Corp Hgb Conc 31.6 g/dL (32-36); Mean Corpuscular Hgb 29.4 pg (27.0-32.0); Mean Corpuscular Volume 93.1 fL (80-94); Mean Platelet Vol. 8.4 fl (6.2-12.0); Monocyte# 0.96 X10^3/uL; Monocyte% 8.8 % (0-10); NRBC Flagged by Analyzer 0 % (0-5); Neutrophil # 9.01 X10^3/uL (2.7-7.7); Neutrophil % 83.2 % (47-70); POSITIVE DIFFERENTIAL YES; Platelet Count 282 K/mm3 (150-450); RBC Distribution Width CV 13.2 % (11.6-14.6); RBC Distribution Width SD 44.6 fl (35.1-43.9); Red Blood Count 5.07 M/mm3 (4.6-6.2); White Blood Count 10.9 K/mm3 (4.4-11.0)
[2020-01-06 23:51] LABS: Differential Indicated SCAN CRITERIA MET
[2020-01-06] MEDS: MethylPREDNISolone 125 MG/2 ML Vial 60 MG IV (23:51)
[2020-01-07 00:04] VITALS: BP 105/75; PULSE 111; RESP 24; TEMP 37.5; O2SAT 96
[2020-01-07 00:06] LABS: Differential Comment SCANNED
--- NOTE | 2020-01-07 01:14 | ED.DCSUM_ITS ---
- ER Visit Summary Date of Service: 01/07/20 Chief Complaint: Shortness of breath History of Present Illness: The patient is a 59 M who presents with shortness of breath that became worse today. Patient has a history of throat cancer and is on prednisone for that. Patient states he ran out of his prednisone yesterday. Patient states that his breathing became worse today. Patient denies any cough. Patient denies any fevers or chills. Patient denies any chest pain. Patient does admit to some mild left ear pain and a sore throat. Patient also admits to a mild headache. Physical Examination: Vital signs are stable except for mild tachycardia of 119. Patient is afebrile. Patient is in no acute distress. Oral mucosa is pink and moist. Neck is supple. Trachea is midline. There is no JVD. Heart was regular rate and rhythm. Lungs are clear and equal bilaterally. Abdomen is soft. Bowel sounds are normal. There is no tenderness. Cranial nerves II through XII are intact. There are no focal motor or sensory deficits noted. Remedies are intact. There is no calf tenderness or edema. Test Results: CBC and basic metabolic profile were obtained and were within normal limits. Chest x-ray shows scarring in the left perihilar area. There is no acute infiltrate. This was interpreted by the radiologist and reviewed by myself. Emergency Department Course and Treatment: Patient was given a dose of prednisone here. Patient was feeling better on reevaluation. Patient was given a prescription for prednisone. Patient was instructed to follow-up with his primary care physician in 5 to 7 days. Patient understood and was agreeable with the plan. All questions were answered. Disposition: Discharge home Impression: Dyspnea This note was generated with [employer] dictation software. It may contain incorrect words, spelling, and punctuation that were not noted in review of the chart prior to signing ED Disposition - Plan for ED Patient: Disposition: Home or Assisted Living Diagnosis: Dyspnea Instructions: ED Dyspnea Prescriptions: predniSONE tablet 60 mg PO DAILY #15 tab Prescription Printed Referrals: Care Physician,No Primary [Primary Care Provider] - 3-5 Days
[2020-01-07 01:25] VITALS: BP 126/83; PULSE 105; RESP 20; O2SAT 98
--- NOTE | 2020-01-07 01:26 | ED.RN ---
pt given written and verbal discharge instructions and home going prescriptions. pt refuses meds to bed. pt iv d/c and covered with 2x2 gauze and paper tape. pt reports i am feeling much better. educated to return to ed for any new or worsened sx. pt denies any further questions and ambulates out of dept by self.
== END 2020-01-07 01:29 | disposition home or self-care (01) ==
PROVIDERS: Emergency Provider Emergency Medicine
DX: R06.00 Dyspnea, unspecified (principal)
CPT/HCPCS: 71045; 80048; 85025; 96374; 99284; A4216

== ENCOUNTER → 2021-01-21 13:52 | Outpatient (CLI) | payer MEDICAID, SELFPAY ==
[2019-07-27 11:28] VITALS: BMI 30.9
--- NOTE | 2021-01-21 13:52 | MRI_ITS ---
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 This report was created using [employer] report generation technology. CONTRAST: IV dotarem 18ml COMPARISON: CT neck 12/07/2019 FINDINGS: NASOPHARYNX: Unremarkable. OROPHARYNX: Unremarkable. No significant tonsillar enlargement. No peritonsillar abscess. HYPOPHARYNX: Unremarkable. LARYNX: Diffuse abnormal enhancement of the anterior aspect of the true vocal cords. Right true vocal cord mass measures 11 x 11 mm. Left true vocal cord mass measures 15 x 6 mm. Normal epiglottis. RETROPHARYNGEAL SPACE: Unremarkable. SUBMANDIBULAR/PAROTID GLANDS: Abnormal enhancement of the left submandibular gland. Neoplastic invasion is in the differential. THYROID: Unremarkable. No enlarged or calcified nodules. BONES/JOINTS: Degenerative findings in the lower cervical spine. VASCULATURE: Heterogeneous enhancing lesion surrounding the left carotid space. LYMPH NODES: Unremarkable. No enlarged lymph nodes. MASTOID AIR CELLS: Abnormal enhancing mass within the left sternocleidomastoid muscle. The area of enhancement measures 32 x 16 mm. This has a central area of low density measuring 6 mm. MRI/Orbit Face Neck W/WO Contrast IMPRESSION: 1. Abnormal enhancement of the left submandibular gland. Neoplastic invasion is in the differential. 2. There is a neoplastic process of the left sternocleidomastoid muscle. This is likely related to metastatic invasion. 3. There is a mass at the level of the larynx and true vocal cords. This has progressed since the prior study. Electronically Signed: Chalino Fernandez MD at 16:53 EDT , Service support ,
== END ==
PROVIDERS: Visit Provider Student in an Organized Health Care Education/Training Program
DX: C32.9 Malignant neoplasm of larynx, unspecified (principal)
CPT/HCPCS: 70543; A9575

== ENCOUNTER → 2021-01-27 14:41 | Outpatient (CLI) | payer MEDICAID, SELFPAY ==
[2019-07-27 11:28] VITALS: BMI 30.9
--- NOTE | 2021-01-27 14:43 | CT_ITS ---
EXAM: CT NECK WITH INTRAVENOUS CONTRAST CLINICAL INDICATION: recurrent laryngeal cancer, eval prior to re-XRT -- planning for re-irradiation TECHNIQUE: Helically acquired images were obtained of the neck with intravenous contrast. This CT exam was performed using one or more of the following dose reduction techniques: automated exposure control, adjustment of the mA and/or kV according to patient size, and/or use of iterative reconstruction technique. This report was created using [employer] report generation technology. CONTRAST: IV 100mL Isovue-370 COMPARISON: MR Sep 2020 2:55pm. 9.7.21 outside PET. FINDINGS: THYROID: Unremarkable. No enlarged or calcified nodules. BONES/JOINTS: No acute fracture. SOFT TISSUES: There is a left submandibular gland area of enlargement of the gland which is concerning for active disease. This area measures 19 x 21 mm. Series 2 image 46. Smaller submandibular lymph node is abnormal in appearance and measures 5.6 mm and enhances. Series 2image 41. There is a left sternocleidomastoid muscle area of enhancement which is abnormal in concerning for active disease and measures 34x 23mm. Series 2image 46. This has a central area of necrosis. There is a right thyroid cartilage and midline thyroid cartilage is diffusely sclerotic which is abnormal and concerning for active disease. There are destructive changes of the left thyroid cartilage. Series 2 image 6. Posterior to this area, there is active disease (tumor) around the anterior true cords (right greater than left) with invasion into the bilateral vocalis muscle. There is sparing of disease of the cricoid cartilage. There is sparing of disease of the right and left platysma. There is abnormal enhancement of the right sternohyoid muscle. There is abnormal enhancement of the right omohyoid superior belly muscle. There is concern for enhancement and involvement of the right arytenoid cartilage. There is abnormal enhancement of the right pharyngeal constrictor muscle. VASCULATURE: There is a left soft tissue mass surrounding the left carotid artery measuring 10mm. Microscopic Invasion into the arteries difficult to exclude. Series 2 image 44. LUNG APICES: Unremarkable as visualized. There is a right Port-A-Cath and/or mediport in place. The tip is in the superior vena cava. There is atherosclerotic calcific plaque formation of the aortic arch and great vessels arising from the aortic arch. CT/Soft Tissue Neck WITH Contrast IMPRESSION: There is a left submandibular gland area of enlargement of the gland which is concerning for active disease. There is a left sternocleidomastoid muscle area of enhancement which is abnormal and concerning for prostatic. There is a left soft tissue mass surrounding the left carotid artery measuring 10mm. There is a right thyroid cartilage and midline thyroid cartilage is diffusely sclerotic which is abnormal and concerning for active disease. There are destructive changes of the left thyroid cartilage. Posterior to this area, there is active disease (tumor) around the anterior true cords (right greater than left) with invasion into the bilateral vocalis muscle. There is abnormal enhancement of the right sternohyoid muscle. There is abnormal enhancement of the right omohyoid superior belly muscle. There is concern for enhancement and involvement of the right arytenoid cartilage. There is abnormal enhancement of the right pharyngeal constrictor muscle. Since the prior outside CT on 12.30.20, there has been significant worse appearance of the Laryngeal carcinoma disease. Electronically Signed: Chalino Fernandez MD at 19:37 EDT , Service support ,
== END ==
PROVIDERS: Referring Provider Student in an Organized Health Care Education/Training Program; Visit Provider Student in an Organized Health Care Education/Training Program
DX: C32.9 Malignant neoplasm of larynx, unspecified (principal)
CPT/HCPCS: 70491; Q9967

== ENCOUNTER 2021-02-11 13:41 | Outpatient (RCR) | payer MEDICAID, SELFPAY ==
[2019-07-27 11:28] VITALS: BMI 30.9
--- NOTE | 2021-02-11 14:59 | HP.SP.AD_ITS ---
History - History Date of Eval: 02/11/21 Referring Doctor: Dr. 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 He completed definitive chemoradiation (29 of planned 33 fractions) in September 2019 and has now developed biopsy proven recurrence within the larynx and left neck. Initial tumor board recommendation was to proceed with surgery followed by IORT and likely adjuvant reirradiation, however the patient has refused this option but is willing to attempt reirradiation and therefore plan was made to complete definitive concurrent reirradiation treating the laryngeal and left neck disease to 6600 cGy in 33 fractions with weekly carboplatin. PAST MEDICAL/SURGICAL HISTORY: Alcohol dependence, in remission; Anxiety disorder, unspecified; Chronic obstructive pulmonary disease, unspecified; Depression; Gastro-esophageal reflux disease without esophagitis; Hallucinogen abuse, in remission; History of lung cancer; laryngeal biopsy; Larynx cancer; Left ankle surgery; Major depressive disorder, single episode, unspecified; Med port placement; Nontraumatic intracerebral hemorrhage, unspecified; arthroscopy of left knee; h/o tracheostomy, self-decannulated; h/o PEG placement, since removed Smoking Status: Former smoker Hx Smoking: Yes Hx Tobacco Use: No Hx Smoking Exposure: Yes - Pain Is pain an issue with your current prescribed condition?: Yes Subjective Oral Motor - Comments Comments: Chronic xerostomia. Patient reports dentures to be somewhat loose fitting. Typically uses denture adhesive, but not used at present d/t need for denture removal during radiation treatment. Objective Oral Motor - Oral Status Dentition: Upper Dentures, Lower Dentures - Labial Impairment: WNL - Labial Comments Comments: Labial strength/ROM grossly WNL - Lingual Impairment: Mild Observation: Deviated Right Protrusion: Mild Retraction: Mild Lateralization: WFL Involuntary Movement: No - Lingual Comments Comments: Mild lingual deviation right w/ protrusion. Reduced lingual strength against resistance w/ R weaker than L. - Jaw Impairment: WNL Opening: Mild Opening Measurement: 34mm - Oral Motor Comments Comments: moist pink oral mucosa - Respiratory Status Respiratory Status: Room Air Objective Dysphagia - Administered by Administered by: Self - Thin Liquids Administred via: Cup Oral Holding: No Comments: Adequate labial seal for oral containment. Audible swallow, occasional double swallow utilized. Laryngeal elevation difficult to assess d/t fibrotic neck. No change in vocal quality from baseline hoarse/gravely quality. No overt s/s aspiration. - Pureed Oral Holding: No Gagging: No Stasis: WFL Comments: Laryngeal elevation difficult to assess d/t fibrotic neck. Tolerated w/out overt s/s aspiration. Sufficient oral clearance. - Regular Comments: Adequate mastication. Mild oral residue diffusely spread t/o the oral cavity, able to clear w/ liquid wash. Patient denies sensation of pharyngeal residue retention. - Results Swallowing Diagnosis: Dysphagia Unspecified Dysphagia Assessment - Impact Impact on Safety & Functioning: Risk for Aspiration, Risk for Inadequate Nutrition/Hydration Comments: This patient denies any difficulty swallowing, although admits reduction in jaw opening over time - likely r/t radiation fibrosis. Stiff fibrotic neck tissue evident w/ palpation, s/p radiation treatment in 2020. This patient is at high risk for inadequate nutrition/hydration and aspiration of PO intake. Patient has a history of prior chemoradiation, COPD & GERD and is currently undergoing reirradiation of the larynx and L neck, all of which place this patient at high risk for dysphagia. - Diet Texture Recommendations Solids Other: Regular Liquids: Thin FOIS - Functional Oral Intake Scale Total oral diet with no restrictions: Level 7 SP Oncology PSS-HN - PSS-HN Test Normalcy of Diet: Full diet Scale Result:: 100 Public Eating: No restrictions of place, food or companions-eats out any opportunity Public eating scale: 100 Understandability of Speech: Always understandable Understandability of Speech Scale: 100 Plan - Plan Plan: Skilled outpatient dysphagia therapy is required to address dysphagia related to recurrent laryngeal cancer and to provide the patient further education re: prophylactic oropharyngeal exercise program, diet texture recommendations, aspiration precautions, and compensatory strategies to decrease risk for aspiration. Additionally, will provide ongoing assessment of diet tolerance during and post radiation treatment. Without skilled ST services, the patient is at risk high risk for aspiration and malnutrition w/ potential for detention negative impacts on the patient's ability to safely consume PO intake & subsequently on his quality of life. A Modified Barium Swallow Study is medically necessary to objectively assess oropharyngeal swallow for determination of baseline swallow function. MBS needed to determine the extent to which radiation fibrosis from prior cancer treatment is impacting swallow function and elucidate diet texture/liquid consistency/compensatory strategy recommendations for improved patient outcome from dysphagia interventions provided during current cancer treatment. - Recommendations MBS: Yes Treatment Warranted: Yes - Frequency Frequency: 1x/Week Duration: 12 Months - Prognosis Prognosis: Good - Goals that are Established: Determination:: Goals will be added/modified as deemed necessary and appropriate. Therapy will be discontinued when results of re-evaluation indicate therapy is no longer needed or lack of progress has been documented. - Goal #1-5 Goal #1: The patient will consume least restrictive diet textures without overt s/s of aspiration with 90% accuracy with minimal verbal cues for use of compensatory strategies to decrease risk for aspiration. Goal #2: The patient will independently complete an oropharyngeal exercise program during and post radiation treatment X10 repetitions, 3-5X daily to improve and maintain strength, ROM, and coordination of swallowing mechanism. Goal #3: The patient will complete jaw strength, coordination, and ROM exercises during and post radiation treatment X10 repetitions, 3-5X daily independently to improve and maintain mastication abilities. Baseline jaw openinmm on 02/11/21 Goal #4: The patient will participate in MBS study to objectively assess swallow function and provide recommendations for safest, least restrictive diet and compensatory strategies to reduce risk for aspiration. Education - Patient has Indicated that the Following Identified Educational Needs: None The Patient has indicated that they have no educational or learning abilities that may effect their care.: Yes - Patient Instruction Patient Education: Diagnosis, Treatment Plan, Goals, Safety Precautions, Diet Level, Home Exercise Program Other Education: Extended time spent providing education regarding the potential impacts of radiation treatment on swallow function during and post treatment, including effects such as mucositis, dysgeusia, radiation fibrosis, and disuse atrophy which may result in restricted range of motion and weakness of swallowing mechanism. Patient is at higher risk for radiation fibrosis and radiation osteonecrosis d/t cancer recurrence necessitating reirradiation of the larynx and L neck. Discussed impact of cancer treatment on swallowing function and potential complications d/t comorbidities of GERD and COPD w/ increased risk for aspiration (overt and silent), aspiration related illnesses, weight loss, and malnutrition. Discussed importance for speech therapy to monitor and address dysphagia both pre, during, and post radiation treatment to maintain optimal swallow function and reduce impact of radiation fibrosis syndrome on swallow function through continued education and prophylactic exercise program comple tion. Provided the patient a handout and demonstration of prophylactic oropharyngeal exercise program, as well as jaw ROM exercises. Pt demonstrated difficulty w/ accurate execution of haleigh and wyatt exercises, but returned comprehension via demonstration with all other exercises following minimal verbal cues and demonstration. Tasked patient to complete swallow exercises x 10 and repeat these sets a minimum of 3x daily. Verbal education and handouts provided to reinforce education provided re: radiation fibrosis syndrome, trismus, xerostomia, lymphedema and dysphagia. The patient would benefit from continued training to monitor proper execution of exercises and encourage strict adherence to exercise program. Person Taught: Patient Teaching Method: Discussion, Demonstration, Handout, Teach back Response to teaching: Return demonstration, Verbalize understanding, Reinforcement needed
--- NOTE | 2021-02-19 15:54 | HP.SP.DC ---
ST Discharge Summary - Discharged: Discharge: Patient was evaluated on 02/11/21 and scheduled for a Modified Barium Swallow Study to be completed 02/16/21. Spoke w/ patient face to face on 02/16 - patient politely declined participation in MBS at this time. Extended time spent discussing rationale for further assessment and continued dysphagia treatment concurrent w/ chemoradiation treatment. Education well received, although patient admits to being significantly depressed and does not wish to participate in further interventions as he believes his cancer treatment is palliative rather than curative and he wishes to enjoy the time he has left. Encouraged patient to continue to eat/drink as often and as frequently as he can plus complete proactive swallow exercises provided during evaluation. Pt states that he is open to PEG placement if he is unable to eat by mouth and that he will be in touch if he changes his mind and wishes to continue dysphagia intervention.
== END 2021-02-11 19:00 | disposition home or self-care (01) ==
LOC: SP 13:41
PROVIDERS: Referring Provider Student in an Organized Health Care Education/Training Program; Visit Provider Student in an Organized Health Care Education/Training Program
DX: C32.9 Malignant neoplasm of larynx, unspecified (principal)
CPT/HCPCS: 92610